=== PATIENT | male | born 1940 | race Asian ===

== ENCOUNTER 2021-12-04 13:42 | Inpatient (IN) | payer OTHER, MEDICAID, SELFPAY ==
[~2021-12-04] VITALS: Ht 165.1 cm; Wt 65.8 kg
[2021-12-04 13:42] VITALS: BP 125/60
--- NOTE | 2021-12-04 14:20 | NUR ---
TORIE GERARDO AT BEDSIDE TO ASSESS PT
--- NOTE | 2021-12-04 14:26 | NUR ---
BLOOD SPECIMEN AND COVID SWAB COLLECTED AND GIVEN TO TECH IN UNIT.
--- NOTE | 2021-12-04 14:29 | NUR ---
JAMES AT BEDSIDE TO PERFORM EKG
[2021-12-04 15:07] LABS: BASOPHILS # (AUTO) 0.1 K/uL (0.00-0.22); BASOPHILS % (AUTO) 0.6 % (0.0-2.0); EOSINOPHILS # (AUTO) 0.1 K/uL (0-0.4); EOSINOPHILS % (AUTO) 0.6 % (0.0-4.0); HEMATOCRIT 22.5 % (36-52); HEMOGLOBIN 7.5 g/dL (12.0-18.0); LYMPHOCYTES # (AUTO) 0.8 K/uL (2.0-11.5); LYMPHOCYTES % (AUTO) 5.6 % (20.5-51.1); MEAN CORPUSCULAR HEMOGLOBIN 31 pg (27-31); MEAN CORPUSCULAR HGB CONC 33 g/dL (33-37); MEAN CORPUSCULAR VOLUME 93.9 fL (80-94); MONOCYTES # (AUTO) 0.9 K/uL (0.8-1.0); MONOCYTES % (AUTO) 6.4 % (1.7-9.3); NEUTROPHILS # (AUTO) 11.9 K/uL (1.8-7.7); NEUTROPHILS % (AUTO) 86.8 % (42.2-75.2); PLATELET COUNT (AUTO) 501 K/uL (140-450); RED CELL DISTRIBUTION WIDTH 16.3 % (11.6-13.7); WHITE BLOOD COUNT (AUTO) 13.8 K/uL (4.8-10.8)
[2021-12-04 15:24] LABS: ALBUMIN 1.5 g/dL (3.4-5.0); ANION GAP 11.8 (8-16); ASPARTATE AMINOTRANSFERASE 58 U/L (15-37); CARBON DIOXIDE 25.6 mmol/L (21-32); CHLORIDE 98 mmol/L (98-107); CREATININE 0.7 mg/dL (0.6-1.3); GLUCOSE 99 mg/dL (74-106); POTASSIUM 4.4 mmol/L (3.5-5.1); SODIUM SERUM 131 mmol/L (136-145); TOTAL BILIRUBIN 0.5 mg/dL (0.0-1.0); UREA NITROGEN, BLOOD 10 mg/dL (7-18)
[2021-12-04] MEDS ORDERED: cefTRIAXone 1,000 MG VIAL ONE (17:22)
--- NOTE | 2021-12-04 19:16 | NUR ---
Pt report given to DYLAN MCKENZIE. Transfer of care at this time.
--- NOTE | 2021-12-04 20:50 | NUR ---
REPORT GIVEN TO JODI GONZALEZ RN FOR CONTINUITY OF CARE.
[2021-12-04 21:00] VITALS: BP 138/65
--- NOTE | 2021-12-04 21:00 | NUR ---
ADMITTED THE PATIENT FROM ER VIA [facility]. PATIENT AWAKE, ALERT, ORIENTED TO PERSON AND PLACE. PATIENT IS A ITALIAN SPEAKING GENTLEMAN BUT ABLE TO SPEAK SYRIAC AND MAKE HIS NEEDS KNOWN. PT ADMITTED FOR BLADDER CA AND RIGHT NEPHROSTOMY TUBE REPLACEMENT. PATIENT HAS BILATERAL NEPHROSTOMY TUBE IN PLACED. PER ER REPORT THE PT RIGHT NEPHROSTOMY IS CLOGGED. NO OUTPUT NOTED ON THE RT SIDE DRAIN AND NOTED A CLEAR URINE ON THE LEFT DRAIN JUST 15 CC. PATIENT IS ALSO INCONTINENT WITH URINE. RECEIVED PATIENT FROM ER SOAKING WITH URINE, CHANGED THE PATIENT AND PARTIAL BED BATH PROVIDED WITH THE HELPED OF THE COMMUNITY AMBASSADOR MARITA. OTHERWISE THE PATIENT IS NOT ON ANY DISTRESS AND DENIES PAIN AT THIS TIME. PATIENT JUST VERBALIZED THAT HE WANTED HIS LIGHT OFF AND CURTAIN CLOSE. ORIENTED THE PT TO THE USE OF CALL LIGHT SYSTEM AND VERBALIZED UNDERSTANDING. CALL LIGHT WITHIN REACH. WILL CONTINUE POC. VSS, AFEBRILE, SATING 96% ON RA.
--- NOTE | 2021-12-04 22:00 | NUR ---
NO DUE MEDS AT THIS TIME. PATIENT HAS EXCORIATION ON GABRIELA AREA AND BUTTOCKS. WILL ORDER HYDRA GUARD OINTMENT.
--- NOTE | 2021-12-05 | NUR ---
PATIENT ASLEEP AT THIS TIME. VISIBLE CHEST RISE AND FALL NOTED. WILL CONTINUE TO OBSERVE.
[2021-12-05] MEDS ORDERED: HYDRAGUARD CREAM TP SCH (01:05)
[2021-12-05] MEDS ORDERED: HYDRAGUARD CREAM TP ONE (02:13)
--- NOTE | 2021-12-05 02:46 | NUR ---
PATIENT ASLEEP AT THIS TIME. VISIBLE CHEST RISE AND FALL NOTED. WILL CONTINUE TO OBSERVE.
[2021-12-05 04:00] VITALS: BP 129/65
--- NOTE | 2021-12-05 04:00 | NUR ---
PT VITAL SIGN STABLE, AFEBRILE, SATING 97% ON RA. NO COMPLAIN OF PAIN AT THIS TIME. WILL CONTINUE TO OBSERVE.
--- NOTE | 2021-12-05 07:03 | NUR ---
PATIENT STABLE AND NOT ON ANY DISTRESS. ALL NEEDS ATTENDED. WILL ENDORSE THE PATIENT TO THE ONCOMING RN FOR CONTINUITY OF CARE.
--- NOTE | 2021-12-05 07:34 | NUR ---
ENDORSED PT TO DAY RN FOR CONTINUITY OF CARE. PT STABLE. SIGNING OFF.
[2021-12-05 07:47] LABS: BASOPHILS # (AUTO) 0.1 K/uL (0.00-0.22); BASOPHILS % (AUTO) 0.5 % (0.0-2.0); EOSINOPHILS # (AUTO) 0.2 K/uL (0-0.4); EOSINOPHILS % (AUTO) 0.7 % (0.0-4.0); HEMATOCRIT 22.8 % (36-52); HEMOGLOBIN 7.6 g/dL (12.0-18.0); LYMPHOCYTES # (AUTO) 2.1 K/uL (2.0-11.5); LYMPHOCYTES % (AUTO) 9.1 % (20.5-51.1); MEAN CORPUSCULAR HEMOGLOBIN 31 pg (27-31); MEAN CORPUSCULAR HGB CONC 33 g/dL (33-37); MONOCYTES # (AUTO) 1.8 K/uL (0.8-1.0); MONOCYTES % (AUTO) 8.2 % (1.7-9.3); NEUTROPHILS # (AUTO) 18.3 K/uL (1.8-7.7); NEUTROPHILS % (AUTO) 81.5 % (42.2-75.2); PLATELET COUNT (AUTO) 452 K/uL (140-450); RED BLOOD CELL COUNT(AUTO) 2.43 MIL/uL (4.20-6.10); RED CELL DISTRIBUTION WIDTH 16.3 % (11.6-13.7)
[2021-12-05 08:01] LABS: ALBUMIN 1.5 g/dL (3.4-5.0); ANION GAP 11.5 (8-16); ASPARTATE AMINOTRANSFERASE 21 U/L (15-37); CARBON DIOXIDE 26.3 mmol/L (21-32); CHLORIDE 100 mmol/L (98-107); CREATININE 0.7 mg/dL (0.6-1.3); GLUCOSE 83 mg/dL (74-106); SODIUM SERUM 135 mmol/L (136-145); TOTAL BILIRUBIN 0.2 mg/dL (0.0-1.0); UREA NITROGEN, BLOOD 9 mg/dL (7-18)
[2021-12-05 08:05] LABS: POTASSIUM 2.8 mmol/L (3.5-5.1)
[2021-12-05 08:45] LABS: WHITE BLOOD COUNT (AUTO) 22.4 K/uL (4.8-10.8)
[2021-12-05] MEDS ORDERED: POTASSIUM CHLORIDE 40 MEQ in NACL 0.9% 1,000 ML IV SCH (08:45)
[2021-12-05] MEDS ORDERED: KCL 20 MEQ/WATER INJ PREMIX 200 ML IV ONE (08:50)
--- NOTE | 2021-12-05 08:50 | NUR ---
REPORTED CRITICAL LAB VALUES TO DR. CANTU, MEDICATION ORDERS RECEIVED
--- NOTE | 2021-12-05 08:51 | NUR ---
PATIENT HAS BEEN SCREENED AND CATEGORIZED HIGH NUTRITION RISK. PATIENT WILL BE SEEN WITHIN 1-2 DAYS OF ADMISSION. 12/05/21-12/06/21 RECEIVED REFERRAL FOR DYSPHAGIA ANGELA [address]
[2021-12-05] MEDS ORDERED: POTASSIUM CHLORIDE 10 MEQ TABER PO SCH ×2 (09:00→15:30)
[2021-12-05] MEDS: KCL 20 MEQ/WATER INJ PREMIX 100 ML IV SCH ×2 (09:53→14:30)
[2021-12-05] MEDS ORDERED: ZOLPIDEM 5 MG TAB PO PRN (10:45)
[2021-12-05] MEDS ORDERED: MORPHINE SULFATE 2 MG/ML SYR IVP PRN (10:45)
[2021-12-05] MEDS ORDERED: DOCUSATE SODIUM 100 MG GELCAP PO PRN (10:45)
[2021-12-05] MEDS ORDERED: ONDANSETRON 4 MG/2 ML VIAL IM/IVP PRN (10:45)
[2021-12-05] MEDS ORDERED: MAG SULF 2000 MG/WATER PREMIX 50 ML IV PRN (10:45)
[2021-12-05] MEDS ORDERED: LORazepam 2 MG/ML VIAL IM/IVP PRN (10:45)
[2021-12-05] MEDS: DEXT 5% /NACL 0.9% 1,000 ML IV SCH ×2 (11:44→20:45)
[2021-12-05 12:00] VITALS: BP 116/57
--- NOTE | 2021-12-05 13:55 | NUR ---
DC PLANN[age] YRS OLD MALE PATIENT WAS ADMITTED FROM [facility] WITH A DX OF BLADDER CA, NEPHROSTOMY TUBE PLACEMENT. PATIENT HAS A HX OF BLADDER CA. CT CHEST SHOWED RIGHT SIDED PULMONARY INFILTRATES WITH TRACE BILATERAL PLEURAL EFFUSIONS. RAPID COVID NEGATIVE. ADMINISTERED IV FLUID, IV ABX MERREM AND CONTINUED HOME MEDS. CONSULTED WITH UROLOGIST AND ID. DC PLAN TO GO BACK TO [facility] WHEN STABLE CM TO FOLLOW Addendum: 12/10/21 at 1704 by Colleen Whipple RN DC PLANNING: S/P BILATERAL NEPHROSTOMY TUBE EXCHANGE PLAN TO EXCHANGE Q 8-12 WEEKS TO PREVENT CLOGGING AND INFECTION. ID FOLLOWING DC PLAN AWAITING FOR URINE CULTURE. CM TO FOLLOW Addendum: 12/11/21 at 1230 by Colleen Whipple RN DC PLANNING: TODAY'S LAB WBC 18.4 ON MERREM IV ABX. ID AND UROLOGIST FOLLOWING. DC PLAN AWAITING FOR URINE CULTURE. CM TO FOLLOW Addendum: 12/18/21 at 1023 by Colleen Whipple RN DC PLANNING: PATIENT HAS A DC ORDER TO GO BACK TO [facility]. FAXED ALL PAPERWORK. AWAITING FOR BED. CM TO FOLLOW Addendum: 12/18/21 at 1510 by Colleen Whipple RN DC PLANNING: ARRANGED TRANSPORT WITH [facility] CYLINDER DIE MACHINE OPERATOR TIME 5 PM MEDICARE PCS FORM COMPLETED AND FAXED TO [facility] [phone]. NOTIFIED IGNACIA RICHARDSON. CM TO FOLLOW
--- NOTE | 2021-12-05 14:30 | NUR ---
PT INCONTINENT - GIVEN BED BATH, REPOSITIONED, PT STABLE IN BED, VSS, CALL LIGHT WITHIN REACH, SAFETY MEASURES MAINTAINED
--- NOTE | 2021-12-05 14:32 | NUR ---
PT REFUSED POTASSIUM - MD CANTU MADE AWARE
--- NOTE | 2021-12-05 16:30 | NUR ---
BLADDER SCAN COMPLETED - 475ML DR. CANTU NOTIFIED - ORDER TO PUT LOVE CATHETER PLACED
--- NOTE | 2021-12-05 17:00 | NUR ---
16FR LOVE CATHETER PLACED, PT TOLERATED WELL, NO ACUTE DISTRESS, VSS, SAFETY MEASURES MAINTAINED, CALL LIGHT WITHIN REACH, WILL CONTINUE TO MONITOR
[2021-12-05 17:44] LABS: CARBON DIOXIDE 26.9 mmol/L (21-32); CHLORIDE 100 mmol/L (98-107); CREATININE 0.8 mg/dL (0.6-1.3); GLUCOSE 112 mg/dL (74-106); POTASSIUM 3.9 mmol/L (3.5-5.1); SODIUM SERUM 134 mmol/L (136-145); UREA NITROGEN, BLOOD 11 mg/dL (7-18)
[2021-12-05 18:00] LABS: PROTHROMBIN TIME 11.2 secs (10.8-13.4)
[2021-12-05 18:16] LABS: CHOL/HDL RATIO 4.6 (1-4.5); THYROID STIMULATING HORMONE 1.71 uIU/mL (0.34-3.74)
--- NOTE | 2021-12-05 18:54 | NUR ---
PT STABLE IN BED, NPO CONTINUED - PENDING IR CONSULT FOR TOMORROW (rIGHT NEPHROSTOMY CLOGGED), LOVE AND IV INTACT, NO ACUTE DISTRESS, SAFETY MEASURES MAINTAINED, CALL LIGHT WITHIN REACH, WILL ENDORSE TO PM SHIFT
--- NOTE | 2021-12-05 19:05 | NUR ---
RECEIVED BEDSIDE REPORT FROM MORNING SHIFT NURSE FOR CONTINUITY OF CARE. PATIENT IS AWAKE AND STABLE. A&OX2 WITH CONFUSION. AROUSABLE TO NAME AND ABLE TO FOLLOW COMMANDS. ON ROOM AIR WITH NO APPARENT S/SX OF ACUTE DISTRESS. RESPIRATIONS EVEN AND UNLABORED. PATIENT HAS AN IV ON LEFT WRIST 22G PATENT/INTACT WITH D5NS INFUSING AT 100 ML/HOUR. F/C IS PRESENT WITH A VISIBLE OUTPUT. RIGHT NEPROSTOMY BAG IS INTACT. POC AND WHITE COMMUNICATION BOARD UPDATED. ALL SAFETY MEASURES IN PLACE. BED IN LOW/LOCKED POSITION. CALL LIGHT WITHIN REACH. WILL CONTINUE TO MONITOR.
[2021-12-05 20:00] VITALS: BP 133/70
--- NOTE | 2021-12-05 20:00 | NUR ---
Patient's Plan of Care was discussed and reviewed with DAMPENER:
--- NOTE | 2021-12-05 21:20 | NUR ---
ADMINISTERED SCHEDULED MEDICATIONS PER MD ORDER. TOLERATED WELL. NO ADVERSE REACTION NOTED. DENIES PAIN. RESPIRATIONS EVEN AND UNLABORED WITH NO APPARENT S/SX OF ACUTE DISTRESS. SNACKS PROVIDED. WHITE COMMUNICATION BOARD UPDATED. ALL SAFETY MEASURES IN PLACE. CALL LIGHT WITHIN REACH. WILL CONTINUE TO MONITOR.
[2021-12-05] MEDS ORDERED: MEROPENEM 1,000 MG in NACL 0.9% 50 ML IV SCH (22:00)
--- NOTE | 2021-12-05 23:20 | NUR ---
ANSWERED CALL LIGHT. REPLACED IVF BAG. DENIES PAIN. RESPIRATIONS EVEN AND UNLABORED WITH NO APPARENT S/SX OF ACUTE DISTRESS. WHITE COMMUNICATION BOARD UPDATED. ALL SAFETY MEASURES IN PLACE. CALL LIGHT WITHIN REACH. WILL CONTINUE TO MONITOR.
--- NOTE | 2021-12-06 01:20 | NUR ---
CHECKED PATIENT. STABLE AND ASLEEP. CHEST IS RISING AND FALLING SYMMETRICALLY. RESPIRATIONS EVEN AND UNLABORED WITH NO APPARENT S/SX OF ACUTE DISTRESS. WHITE COMMUNICATION BOARD UPDATED. ALL SAFETY MEASURES IN PLACE. CALL LIGHT WITHIN REACH. WILL CONTINUE TO MONITOR.
--- NOTE | 2021-12-06 03:20 | NUR ---
ROUNDED ON PATIENT. STABLE AND ASLEEP. CHEST IS RISING AND FALLING SYMMETRICALLY. RESPIRATIONS EVEN AND UNLABORED WITH NO APPARENT S/SX OF ACUTE DISTRESS. WHITE COMMUNICATION BOARD UPDATED. ALL SAFETY MEASURES IN PLACE. CALL LIGHT WITHIN REACH. WILL CONTINUE TO MONITOR.
[2021-12-06 04:00] VITALS: BP 128/76
[2021-12-06] MEDS ORDERED: MEROPENEM 1,000 MG VIAL IV ONE (04:43)
[2021-12-06] MEDS: MEROPENEM 1,000 MG in NACL 0.9% 50 ML IV SCH ×3 (04:48→21:08)
--- NOTE | 2021-12-06 05:20 | NUR ---
EMPTIED PATIENT'S NEPHROSTOMY BAG. HYDRATED PATIENT'S LIPS VIA SWAB AND APPLIED MOISTURIZER. DENIES PAIN. RESPIRATIONS EVEN AND UNLABORED WITH NO APPARENT S/SX OF ACUTE DISTRESS. WHITE COMMUNICATION BOARD UPDATED. ALL SAFETY MEASURES IN PLACE. CALL LIGHT WITHIN REACH. WILL CONTINUE TO MONITOR.
[2021-12-06 06:03] LABS: BASOPHILS # (AUTO) 0.1 K/uL (0.00-0.22); BASOPHILS % (AUTO) 0.3 % (0.0-2.0); EOSINOPHILS # (AUTO) 0.1 K/uL (0-0.4); EOSINOPHILS % (AUTO) 0.3 % (0.0-4.0); HEMOGLOBIN 8.3 g/dL (12.0-18.0); LYMPHOCYTES % (AUTO) 9.5 % (20.5-51.1); MEAN CORPUSCULAR HEMOGLOBIN 32 pg (27-31); MEAN CORPUSCULAR HGB CONC 33 g/dL (33-37); MEAN CORPUSCULAR VOLUME 94.8 fL (80-94); MONOCYTES # (AUTO) 1.9 K/uL (0.8-1.0); MONOCYTES % (AUTO) 8.9 % (1.7-9.3); NEUTROPHILS # (AUTO) 16.9 K/uL (1.8-7.7); PLATELET COUNT (AUTO) 461 K/uL (140-450); RED BLOOD CELL COUNT(AUTO) 2.63 MIL/uL (4.20-6.10); RED CELL DISTRIBUTION WIDTH 17.2 % (11.6-13.7)
[2021-12-06 06:27] LABS: ANION GAP 10.9 (8-16); CARBON DIOXIDE 25.3 mmol/L (21-32); CHLORIDE 104 mmol/L (98-107); CREATININE 0.9 mg/dL (0.6-1.3); GLUCOSE 143 mg/dL (74-106); POTASSIUM 4.2 mmol/L (3.5-5.1); SODIUM SERUM 136 mmol/L (136-145); UREA NITROGEN, BLOOD 10 mg/dL (7-18)
[2021-12-06 06:36] LABS: MAGNESIUM 2.1 mg/dL (1.8-2.4); PHOSPHORUS 1.6 mg/dL (2.5-4.9)
[2021-12-06] MEDS: DEXT 5% /NACL 0.9% 1,000 ML IV SCH ×3 (06:45→23:50)
[2021-12-06 06:49] LABS: WHITE BLOOD COUNT (AUTO) 20.8 K/uL (4.8-10.8)
--- NOTE | 2021-12-06 07:20 | NUR ---
ENDORSED PATIENT TO MORNING SHIFT NURSE FOR CONTINUITY OF CARE. PATIENT IS STABLE.
[2021-12-06 08:00] VITALS: BP 128/67
[2021-12-06] MEDS: HYDROcodone/APAP 5/325 MG 1 TAB TAB PO PRN (09:27)
[2021-12-06] MEDS ORDERED: FLUMAZENIL 0.5 MG/5 ML VIAL IVP ONE (11:12)
[2021-12-06] MEDS ORDERED: NALOXONE 0.4 MG/ML VIAL ONE (11:12)
[2021-12-06] MEDS ORDERED: fentaNYL citrate 0.05 MG/ML VIAL ONE ×2 (11:12→11:25)
[2021-12-06] MEDS ORDERED: MIDAZOLAM 5 MG/5 ML VIAL ONE (11:13)
[2021-12-06] MEDS ORDERED: ceFAZolin 1,000 MG VIAL ONE ×2 (11:22→11:25)
[2021-12-06] MEDS ORDERED: MIDAZOLAM 5 MG/1 ML VIAL ONE (11:25)
[2021-12-06] MEDS ORDERED: LIDOCAINE MPF 2% 100 MG/5 ML VIAL INJ ONE ×2 (11:51→11:53)
[2021-12-06] MEDS: FLUCONAZOLE 100 MG TAB PO SCH (14:00)
--- NOTE | 2021-12-06 14:16 | NUR ---
12/06/21 RD INITIAL ASSESSMENT COMPLETED PLEASE REFER TO NUTRITION ASSESSMENT UNDER CARE ACTIVITY FOR ESTIMATED NUTRITIONAL NEEDS. 1. WHEN/IF MEDICALLY APPROPRIATE, ADVANCE DIET TO CLEAR LIQUID TOLERATED OR PER MD 2. RECOMMEND SWALLOW EVAL D/T PT WITH SWALLOWING IMPAIRED 3. RD TO FOLLOW-UP 2-3 DAYS, HIGH RISK ANGELA ZHENG RD
[2021-12-06 16:00] VITALS: BP 139/66
[2021-12-06] MEDS ORDERED: SODIUM PHOSPHATE 15 MMOLE in NACL 0.9% 250 ML IV SCH (22:10)
--- NOTE | 2021-12-06 23:00 | NUR ---
RECEIVED BEDSIDE REPORT FROM JENNIFER RICHARDSON. PT IS AAOX2-3 PT AWAKE LAYING IN BED COMFORTABLY DENIES ANY COMPLAINTS. PT IS S/P JOSEPH NEPHROSTOMY PLACEMENT DRAINING WELL R YELLOW URINE NOTED R PINK TINGED URINE NOTED. LOVE CATH DRAINING YELLOW URINE. LW22G SL AND WR22G IVF INFUSING PER ORDERS. RESPIRATIONS ARE EQUAL AND UNLABORED ON ROOM AIR. SKIN IS WARM, DRY AND INTACT. PT NPO WAITING ST EVAL. PT IS BEDREST. POC REVIEWED WITH PT. CALL LIGHT IS WITHIN REACH. WILL CONTINUE TO MONITOR.
[2021-12-07] MEDS ORDERED: SODIUM PHOS / POTASSIUM PHOS 1 PKT PDR PO ONE
[2021-12-07] MEDS: SODIUM PHOS / POTASSIUM PHOS 1 PKT PDR PO SCH ×3 (00:48→17:48)
--- NOTE | 2021-12-07 02:00 | NUR ---
ROUNDS MADE. PT OBSERVED RESTING IN BED WITH EYES CLOSED APPEARS TO BE ASLEEP. CHEST RISE AND FALL NOTED. CALL LIGHT IS WITHIN REACH. WILL CONTINUE TO MONITOR.
[2021-12-07 04:00] VITALS: BP 122/62
--- NOTE | 2021-12-07 04:00 | NUR ---
VITAL SIGNS ARE WITHIN NORMAL LIMITS. ALL SAFETY MEASURES ARE IN PLACE. WILL CONTINUE TO MONITOR
[2021-12-07] MEDS: MEROPENEM 1,000 MG in NACL 0.9% 50 ML IV SCH ×3 (04:06→20:36)
--- NOTE | 2021-12-07 07:23 | NUR ---
GAVE BEDSIDE REPORT TO DAY RN. PT ENDORSED IN STABLE CONDITION.
[2021-12-07 07:46] LABS: BASOPHILS # (AUTO) 0.2 K/uL (0.00-0.22); BASOPHILS % (AUTO) 0.9 % (0.0-2.0); EOSINOPHILS # (AUTO) 0.2 K/uL (0-0.4); EOSINOPHILS % (AUTO) 0.8 % (0.0-4.0); HEMATOCRIT 21.1 % (36-52); LYMPHOCYTES # (AUTO) 2.7 K/uL (2.0-11.5); MEAN CORPUSCULAR HEMOGLOBIN 31 pg (27-31); MEAN CORPUSCULAR HGB CONC 33 g/dL (33-37); MONOCYTES % (AUTO) 9.9 % (1.7-9.3); NEUTROPHILS # (AUTO) 15.4 K/uL (1.8-7.7); NEUTROPHILS % (AUTO) 75.4 % (42.2-75.2); PLATELET COUNT (AUTO) 377 K/uL (140-450); RED BLOOD CELL COUNT(AUTO) 2.24 MIL/uL (4.20-6.10); RED CELL DISTRIBUTION WIDTH 16.9 % (11.6-13.7); WHITE BLOOD COUNT (AUTO) 20.5 K/uL (4.8-10.8)
[2021-12-07 07:54] LABS: ANION GAP 11.1 (8-16); CARBON DIOXIDE 24.7 mmol/L (21-32); CHLORIDE 105 mmol/L (98-107); CREATININE 0.8 mg/dL (0.6-1.3); GLUCOSE 124 mg/dL (74-106); SODIUM SERUM 138 mmol/L (136-145); UREA NITROGEN, BLOOD 7 mg/dL (7-18)
[2021-12-07 07:56] LABS: POTASSIUM 2.8 mmol/L (3.5-5.1)
[2021-12-07 08:00] VITALS: BP 116/54
[2021-12-07 08:07] LABS: MAGNESIUM 1.8 mg/dL (1.8-2.4); PHOSPHORUS 1.9 mg/dL (2.5-4.9)
[2021-12-07] MEDS: DEXT 5% /NACL 0.9% 1,000 ML IV SCH ×2 (08:42→22:18)
[2021-12-07] MEDS: POTASSIUM CHLORIDE 10 MEQ TABER PO PRN (08:43)
[2021-12-07] MEDS ORDERED: POTASSIUM CHLORIDE 40 MEQ, LIDOCAINE MPF 1% 25 MG in NACL 0.9% 250 ML IV ONE (08:50)
[2021-12-07] MEDS ORDERED: POTASSIUM PHOSPHATE 15 MM in NACL 0.9% 250 ML IV SCH (13:00)
[2021-12-07] MEDS: FLUCONAZOLE 100 MG TAB PO SCH (14:17)
[2021-12-07 16:00] VITALS: BP 124/59
[2021-12-07 20:29] VITALS: BP 114/65
[2021-12-08 04:00] VITALS: BP 118/64
[2021-12-08] MEDS: MEROPENEM 1,000 MG in NACL 0.9% 50 ML IV SCH ×3 (04:08→20:34)
[2021-12-08 08:00] VITALS: BP 123/62
[2021-12-08] MEDS ORDERED: MENTHOL/ZINC OXIDE 113 GM TUBE TP PRN (08:00)
[2021-12-08] MEDS: DEXT 5% /NACL 0.9% 1,000 ML IV SCH ×2 (08:45→17:51)
[2021-12-08 10:03] LABS: ANION GAP 6.8 (8-16); CARBON DIOXIDE 28.5 mmol/L (21-32); CHLORIDE 108 mmol/L (98-107); CREATININE 0.8 mg/dL (0.6-1.3); GLUCOSE 114 mg/dL (74-106); POTASSIUM 4.3 mmol/L (3.5-5.1); SODIUM SERUM 139 mmol/L (136-145); UREA NITROGEN, BLOOD 8 mg/dL (7-18)
[2021-12-08 10:07] LABS: MAGNESIUM 1.9 mg/dL (1.8-2.4)
[2021-12-08 10:08] LABS: BASOPHILS # (AUTO) 0.1 K/uL (0.00-0.22); BASOPHILS % (AUTO) 0.6 % (0.0-2.0); EOSINOPHILS # (AUTO) 0.3 K/uL (0-0.4); EOSINOPHILS % (AUTO) 1.6 % (0.0-4.0); HEMATOCRIT 22.8 % (36-52); HEMOGLOBIN 7.5 g/dL (12.0-18.0); LYMPHOCYTES # (AUTO) 2.4 K/uL (2.0-11.5); LYMPHOCYTES % (AUTO) 11.7 % (20.5-51.1); MEAN CORPUSCULAR HEMOGLOBIN 32 pg (27-31); MEAN CORPUSCULAR HGB CONC 33 g/dL (33-37); MEAN CORPUSCULAR VOLUME 95.3 fL (80-94); MONOCYTES # (AUTO) 1.6 K/uL (0.8-1.0); MONOCYTES % (AUTO) 7.6 % (1.7-9.3); NEUTROPHILS # (AUTO) 16.3 K/uL (1.8-7.7); NEUTROPHILS % (AUTO) 78.5 % (42.2-75.2); PLATELET COUNT (AUTO) 397 K/uL (140-450); RED CELL DISTRIBUTION WIDTH 17.5 % (11.6-13.7); WHITE BLOOD COUNT (AUTO) 20.8 K/uL (4.8-10.8)
[2021-12-08] MEDS: FLUCONAZOLE 100 MG TAB PO SCH (14:00)
--- NOTE | 2021-12-08 15:23 | NUR ---
PHYSICAL THERAPY CO-SIGN The Physical Therapy Progress Notes documented by Crutching Contractor have been reviewed. Reviewed/Co-Signed by: Mabel Yancey Documentation Done by: AILYN BAZZI PTA Addendum: 12/09/21 at 1524 by Mabel Yancey PT Amended: Links added.
[2021-12-08 16:00] VITALS: BP 114/60
[2021-12-08 20:00] VITALS: BP 113/62
[2021-12-09] MEDS: DEXT 5% /NACL 0.9% 1,000 ML IV SCH ×2 (00:50→15:18)
[2021-12-09 04:00] VITALS: BP 129/61
[2021-12-09] MEDS: MEROPENEM 1,000 MG in NACL 0.9% 50 ML IV SCH ×3 (04:52→22:44)
--- NOTE | 2021-12-09 07:29 | NUR ---
RECEIVED REPORT FROM AFRICAN STUDIES PROFESSOR NURSE FOR CONTINUITY OF CARE.
--- NOTE | 2021-12-09 08:00 | NUR ---
Patient's Plan of Care was discussed and reviewed with PRANAV: PRANAV KEYES
[2021-12-09 08:32] LABS: BASOPHILS # (AUTO) 0.1 K/uL (0.00-0.22); BASOPHILS % (AUTO) 0.5 % (0.0-2.0); EOSINOPHILS # (AUTO) 0.2 K/uL (0-0.4); EOSINOPHILS % (AUTO) 1.1 % (0.0-4.0); HEMATOCRIT 22.4 % (36-52); HEMOGLOBIN 7.3 g/dL (12.0-18.0); LYMPHOCYTES # (AUTO) 2.4 K/uL (2.0-11.5); LYMPHOCYTES % (AUTO) 12.8 % (20.5-51.1); MEAN CORPUSCULAR HEMOGLOBIN 31 pg (27-31); MEAN CORPUSCULAR HGB CONC 33 g/dL (33-37); MEAN CORPUSCULAR VOLUME 95.7 fL (80-94); MONOCYTES # (AUTO) 1.3 K/uL (0.8-1.0); MONOCYTES % (AUTO) 6.9 % (1.7-9.3); NEUTROPHILS # (AUTO) 14.8 K/uL (1.8-7.7); NEUTROPHILS % (AUTO) 78.7 % (42.2-75.2); PLATELET COUNT (AUTO) 377 K/uL (140-450); RED BLOOD CELL COUNT(AUTO) 2.34 MIL/uL (4.20-6.10); RED CELL DISTRIBUTION WIDTH 17.3 % (11.6-13.7); WHITE BLOOD COUNT (AUTO) 18.8 K/uL (4.8-10.8)
[2021-12-09 08:57] LABS: ANION GAP 10.2 (8-16); CARBON DIOXIDE 24.1 mmol/L (21-32); CHLORIDE 106 mmol/L (98-107); CREATININE 0.8 mg/dL (0.6-1.3); GLUCOSE 123 mg/dL (74-106); POTASSIUM 3.3 mmol/L (3.5-5.1); SODIUM SERUM 137 mmol/L (136-145); UREA NITROGEN, BLOOD 7 mg/dL (7-18)
[2021-12-09 09:05] LABS: MAGNESIUM 1.9 mg/dL (1.8-2.4)
--- NOTE | 2021-12-09 09:42 | NUR ---
REMOVED LOVE CATHETER ODER NO HEMATURIA NOTED. BOTH` RIGHT AND LEFT NEPHROSTOMY WORKING WELL.
--- NOTE | 2021-12-09 11:40 | NUR ---
PT ON BED ALERT RESTING ALL SAFETY MEASURE IN PLACE. NEPHROSTOMY TUBE DRAINING WELL NO BLEEDING NOTED. NO COMPLAIN OF HEMATURIA OR DYSURIA AFTER LOVE CATHETER REMOVAL. CALL LIGHT WITH IN EASY REACH.
[2021-12-09 12:00] VITALS: BP 121/59
--- NOTE | 2021-12-09 13:01 | NUR ---
12/09/21 RD FOLLOW UP COMPLETED. PLEASE REFER TO NUTRITION ASSESSMENT UNDER CARE ACTIVITY FOR ESTIMATED NUTRITIONAL NEEDS. 1. CONTINUE WITH MECHANICAL SOFT DIET. WHEN/IF MEDICALLY APPROPRIATE, ADVANCE DIET TO REGULAR TOLERATED OR PER MD 2. RECOMMEND SWALLOW EVAL D/T PT WITH SWALLOWING IMPAIRED RD TO FOLLOW-UP IN 3-5 DAYS PATIENT IS MODERATE RISK HIREN GRISSOM RD
[2021-12-09] MEDS: FLUCONAZOLE 100 MG TAB PO SCH (13:23)
--- NOTE | 2021-12-09 13:30 | NUR ---
PATIENT ASSISTED TO SET HIS LUNCH AND SIT UP SO HE CAN PROPERLY SIT AND EAT. PT ABLE TO EAT ON HIS OWN GIVEN ORAL MEDICATION. CALL LIGHT WITH IN EASY REACH.
--- NOTE | 2021-12-09 15:23 | NUR ---
PHYSICAL THERAPY CO-SIGN The Physical Therapy Progress Notes documented by Wildlife Conservation Officer have been reviewed. Reviewed/Co-Signed by: Mabel Yancey Documentation Done by: AILYN BAZZI PTA Addendum: 12/09/21 at 1524 by Mabel Yancey PT Amended: Links added.
--- NOTE | 2021-12-09 15:38 | NUR ---
ENDLESS BELT FINISHER AT BED SIDE AND CHECKING HIS VITAL SIGN.
--- NOTE | 2021-12-09 17:36 | NUR ---
PATIENT ON BED ALERT NO DISTRESS NOTED. NO FEVER OR CHILLS NO S/S OF INFECTION. ENCOURAGED TO INCREASE FLUID AND ORAL INTAKE.
--- NOTE | 2021-12-09 18:57 | NUR ---
ON BED ASLEEP NO DISTRESS NOTED. NO ADVERSE REACTION NOTED ON ANTIBIOTIC THERAPY. DENIES PAIN OR ANY DISCOMFORT.CALL LIGHT WITH IN EASY REACH.
--- NOTE | 2021-12-09 19:26 | NUR ---
ENDORSE TO LEG ASSEMBLER NURSE FOR CONTINUITY OF CARE.
[2021-12-09 20:00] VITALS: BP 121/60
[2021-12-10] MEDS: DEXT 5% /NACL 0.9% 1,000 ML IV SCH ×3 (00:45→21:41)
[2021-12-10 04:00] VITALS: BP 127/63
[2021-12-10] MEDS: MEROPENEM 1,000 MG in NACL 0.9% 50 ML IV SCH ×3 (05:00→21:42)
--- NOTE | 2021-12-10 05:12 | NUR ---
PT VERBALIZED THAT HE IS EAGER TO GET UP AND OOB (OUT OF BED) AND BEGIN WALKING WITH PHYSICAL THERAPY. WILL ENDORSE TO DAY SHIFT.
--- NOTE | 2021-12-10 07:12 | NUR ---
RECEIVED REPORT FROM TALENT BUYER NURSE FOR CONTINUITY OF CARE. PT IN BED SLEEPING AT THIS TIME. RESPIRATIONS ARE EVEN AND UNLABORED. NO SIGNS OF DISTRESS NOTED. CALL LIGHT WITHIN REACH. ALL SAFETY MEASURES IN PLACE. WILL CONTINUE TO MONITOR.
[2021-12-10 07:40] LABS: BASOPHILS # (AUTO) 0.1 K/uL (0.00-0.22); BASOPHILS % (AUTO) 0.7 % (0.0-2.0); EOSINOPHILS # (AUTO) 0.2 K/uL (0-0.4); HEMOGLOBIN 7.8 g/dL (12.0-18.0); LYMPHOCYTES % (AUTO) 16.1 % (20.5-51.1); MEAN CORPUSCULAR HEMOGLOBIN 31 pg (27-31); MEAN CORPUSCULAR HGB CONC 33 g/dL (33-37); MEAN CORPUSCULAR VOLUME 95.5 fL (80-94); MONOCYTES # (AUTO) 1.2 K/uL (0.8-1.0); MONOCYTES % (AUTO) 6.6 % (1.7-9.3); NEUTROPHILS # (AUTO) 13.9 K/uL (1.8-7.7); NEUTROPHILS % (AUTO) 75.6 % (42.2-75.2); PLATELET COUNT (AUTO) 345 K/uL (140-450); RED BLOOD CELL COUNT(AUTO) 2.51 MIL/uL (4.20-6.10); RED CELL DISTRIBUTION WIDTH 17.3 % (11.6-13.7); WHITE BLOOD COUNT (AUTO) 18.4 K/uL (4.8-10.8)
--- NOTE | 2021-12-10 07:59 | NUR ---
THIS INTERVENTION NOT DONE BY INVENTORY CONTROL ASSISTANT STAFF. Addendum: 12/10/21 at 0759 by Jayde Montesinos LVN Amended: Links added.
--- NOTE | 2021-12-10 08:00 | NUR ---
Patient's Plan of Care was discussed and reviewed with MATERIALS HANDLER: PRANAV TORERS
[2021-12-10 08:03] LABS: ANION GAP 10.7 (8-16); CARBON DIOXIDE 24.4 mmol/L (21-32); CHLORIDE 104 mmol/L (98-107); CREATININE 0.8 mg/dL (0.6-1.3); GLUCOSE 88 mg/dL (74-106); POTASSIUM 3.1 mmol/L (3.5-5.1); SODIUM SERUM 136 mmol/L (136-145); UREA NITROGEN, BLOOD 6 mg/dL (7-18)
[2021-12-10 08:05] LABS: MAGNESIUM 1.8 mg/dL (1.8-2.4); PHOSPHORUS 2.1 mg/dL (2.5-4.9)
--- NOTE | 2021-12-10 08:35 | NUR ---
ADMINISTERED SCHEDULED MEDICATIONS. EDUCATED PT REGARDING MEDS ADMINISTERED. PT VERBALIZED UNDERSTANDING. WILL CONTINUE TO MONITOR.
[2021-12-10] MEDS: POTASSIUM CHLORIDE 10 MEQ TABER PO PRN (11:38)
--- NOTE | 2021-12-10 11:38 | NUR ---
PT POTASSIUM 3.1, ADMINISTERED PRN K DUR 40 MEQ. WILL CONTINUE TO MONITOR.
[2021-12-10 12:37] LABS: APPEARANCE,URINE CLEAR (CLEAR); BILIRUBIN,URINE NEGATIVE (NEGATIVE); BLOOD, URINE 1+ (NEGATIVE); COLOR,URINE YELLOW (YELLOW); LEUKOCYTE ESTERASE ,URINE TRACE (NEGATIVE); NITRITE, URINE NEGATIVE (NEGATIVE); PH,URINE 7.5 (5.0-9.0); UGLUCOSE NEGATIVE (NEGATIVE)
[2021-12-10 13:23] LABS: CALCIUM OXALATE CRYSTALS,UR None Seen /HPF (None Seen); HYALINE CASTS, URINE 0-10 /LPF (None Seen); OTHER CRYSTALS,URINE None Seen /HPF (None Seen); TRICHOMONAS,URINE None Seen /HPF (None Seen); TRIPLE PHOSPHATE CRYSTAL,UR None Seen /HPF (None Seen); URIC ACID CRYSTALS,URINE None Seen /HPF (None Seen); URINE AMORPHOUS URATE None Seen /HPF (None Seen); YEAST,URINE None Seen /HPF (None Seen)
[2021-12-10 13:24] LABS: COARSE GRANULAR CASTS,URINE None Seen /LPF (None Seen); FINE GRANULAR CASTS,URINE None Seen /LPF (None Seen); OTHER CASTS, URINE None Seen /LPF (None Seen); RED BLOOD CELL CASTS,URINE None Seen /LPF (None Seen); WAXY CASTS,URINE None Seen /LPF (None Seen)
[2021-12-10] MEDS: FLUCONAZOLE 100 MG TAB PO SCH (13:59)
--- NOTE | 2021-12-10 15:43 | NUR ---
DID ROUNDS ON PT. PT IN BED RESTING AT THIS TIME. RESPIRATIONS ARE EVEN AND UNLABORED. NO SIGNS OF DISTRESS NOTED. WILL CONTINUE TO MONITOR.
[2021-12-10 16:00] VITALS: BP 115/52
--- NOTE | 2021-12-10 18:43 | NUR ---
PT IN BED RESTING AT THIS TIME. RESPIRATIONS ARE EVEN AND UNLABORED. ALL NEEDS MET THROUGHOUT SHIFT. PT IS STABLE. WILL ENDORSE TO BOW MAKER CUSTOM NURSE.
[2021-12-10 20:00] VITALS: BP 117/54
[2021-12-11] MEDS: MEROPENEM 1,000 MG in NACL 0.9% 50 ML IV SCH ×3 (05:26→21:58)
[2021-12-11] MEDS: DEXT 5% /NACL 0.9% 1,000 ML IV SCH ×2 (06:45→17:05)
--- NOTE | 2021-12-11 07:15 | NUR ---
RECEIVED REPORT FROM DIALYSIS CLINICAL MANAGER NURSE FOR CONTINUITY OF CARE. PT IN BED SLEEPING AT THIS TIME. RESPIRATIONS ARE EVEN AND UNLABORED ON ROOM AIR. SO SIGNS OF PAIN OR DISCOMFORT NOTED. CALL LIGHT WITHIN REACH. ALL SAFETY MEASURES IN PLACE. WILL CONTINUE TO MONITOR.
--- NOTE | 2021-12-11 07:33 | NUR ---
PHYSICAL THERAPY CO-SIGN The Physical Therapy Progress Notes documented by Information Technology Officer have been reviewed. Reviewed/Co-Signed by: Mabel Yancey Documentation Done by: AILYN BAZZI PTA Addendum: 12/11/21 at 9794 by Mabel Yancey PT Amended: Links added.
[2021-12-11 08:00] VITALS: BP 104/51
--- NOTE | 2021-12-11 09:10 | NUR ---
ADMINISTERED ALL SCHEDULED MEDICATIONS. EDUCATED PT REGARDING MEDS ADMINISTERED. PT VERBALIZED UNDERSTANDING. WILL CONTINUE TO MONITOR.
--- NOTE | 2021-12-11 12:50 | NUR ---
IV ANTIBIOTICS ADMINISTERED BY RN. WILL CONTINUE TO MONITOR.
--- NOTE | 2021-12-11 15:55 | NUR ---
PT PULLED OUT IV. WILL ATTEMPT IV ACCESS.
[2021-12-11 16:00] VITALS: BP 118/57
--- NOTE | 2021-12-11 16:45 | NUR ---
ATTEMPT IV ACCESS. UNSUCCESSFUL. WILL ASK OTHER STAFF TO ATTEMPT. WILL CONTINUE TO MONITOR.
--- NOTE | 2021-12-11 17:01 | NUR ---
OTHER STAFF UNSUCCESSFUL WITH IV ACCESS. WILL ATTEMPT AGAIN.
--- NOTE | 2021-12-11 19:20 | NUR ---
ENDORSED PT TO DISPLAY COORDINATOR NURSE FOR CONTINUITY OF CARE. ALL NEEDS MET THROUGHOUT SHIFT. PT IS STABLE. PT STILL HAS NO IV ACCESS AT THIS TIME. ENDORSED TO DISPLAY COORDINATOR.
--- NOTE | 2021-12-11 19:22 | NUR ---
RECEIVED PATIENT REPORT FROM AM SHIFT NURSE FOR CONTINUITY OF CARE. PATIENT IN BED RESTING COMFORTABLY. BREATHING EVEN AND UNLABORED WITH NO SOB NOTED. NOT IN DISTRESS. DENIES ANY PAIN OR DISCOMFORT AT THIS TIME. ALL SAFETY MEASURES IN PLACE. CALL LIGHT WITHIN REACH. WILL CONTINUE WITH CURRENT PLAN OF CARE.
--- NOTE | 2021-12-11 20:00 | NUR ---
Patient's Plan of Care was discussed and reviewed with FREELANCE DISPLAYER: JERED PETE
--- NOTE | 2021-12-11 21:47 | NUR ---
ADMINISTERED SCHEDULE MEDICATION PER MD ORDER. TOLERATED WELL. NO ASE NOTED. ALL SAFETY MEASURES IN PLACE. CALL LIGHT WITHIN REACH. WHITE COMMUNICATION BOARD UPDATED. WILL CONTINUE TO MONITOR.
--- NOTE | 2021-12-11 23:53 | NUR ---
CHECKED ON PATIENT. SOUNDS ASLEEP. BREATHING EVEN AND UNLABORED WITH NO SOB NOTED. ALL SAFETY MEASURES IN PLACE. CALL LIGHT WITHIN REACH. WILL CONTINUE TO MONITOR.
[2021-12-12] VITALS: BP 127/58
--- NOTE | 2021-12-12 01:56 | NUR ---
ANSWERED PATIENT CALL LIGHT. PATIENT IS LOOKING FOR HIS BED REMOTE. IT WAS UNDER HIS PILLOW. PT NOT IN DISTRESS. DENIES ANY PAIN AT THIS TIME. PLACE CALL LIGHT WITHIN REACH. WILL CONTINUE TO MONITOR.
[2021-12-12] MEDS: DEXT 5% /NACL 0.9% 1,000 ML IV SCH ×3 (02:45→22:45)
--- NOTE | 2021-12-12 03:55 | NUR ---
CHECKED ON PATIENT. PT ASLEEP. RESPIRATION EVEN AND UNLABORED. NO SOB NOTED. CALL LIGHT WITHIN REACH. WILL CONTINUE TO MONITOR.
[2021-12-12] MEDS: MEROPENEM 1,000 MG in NACL 0.9% 50 ML IV SCH ×3 (05:13→22:00)
--- NOTE | 2021-12-12 05:41 | NUR ---
ANSWERED PATIENT CALL LIGHT. REQUESTING FOR WARM BLANKET. WARM BLANKET PROVIDED. ALL SAFETY MEASURES IN PLACE. CALL LIGHT WITHIN REACH. WILL CONTINUE TO MONITOR.
[2021-12-12 07:11] LABS: BASOPHILS # (AUTO) 0.1 K/uL (0.00-0.22); BASOPHILS % (AUTO) 0.5 % (0.0-2.0); EOSINOPHILS # (AUTO) 0.3 K/uL (0-0.4); EOSINOPHILS % (AUTO) 1.4 % (0.0-4.0); HEMATOCRIT 22.8 % (36-52); HEMOGLOBIN 7.4 g/dL (12.0-18.0); LYMPHOCYTES # (AUTO) 2.6 K/uL (2.0-11.5); LYMPHOCYTES % (AUTO) 13.6 % (20.5-51.1); MEAN CORPUSCULAR HEMOGLOBIN 31 pg (27-31); MEAN CORPUSCULAR HGB CONC 33 g/dL (33-37); MEAN CORPUSCULAR VOLUME 95.7 fL (80-94); MONOCYTES # (AUTO) 2.1 K/uL (0.8-1.0); MONOCYTES % (AUTO) 11.1 % (1.7-9.3); NEUTROPHILS # (AUTO) 14.2 K/uL (1.8-7.7); NEUTROPHILS % (AUTO) 73.4 % (42.2-75.2); PLATELET COUNT (AUTO) 383 K/uL (140-450); RED BLOOD CELL COUNT(AUTO) 2.38 MIL/uL (4.20-6.10); RED CELL DISTRIBUTION WIDTH 16.7 % (11.6-13.7); WHITE BLOOD COUNT (AUTO) 19.4 K/uL (4.8-10.8)
[2021-12-12 07:20] LABS: ALBUMIN 1.4 g/dL (3.4-5.0); ANION GAP 8.7 (8-16); ASPARTATE AMINOTRANSFERASE 29 U/L (15-37); CARBON DIOXIDE 27.3 mmol/L (21-32); CHLORIDE 103 mmol/L (98-107); CREATININE 0.7 mg/dL (0.6-1.3); GLUCOSE 100 mg/dL (74-106); MAGNESIUM 1.9 mg/dL (1.8-2.4); PHOSPHORUS 2.6 mg/dL (2.5-4.9); SODIUM SERUM 135 mmol/L (136-145); TOTAL BILIRUBIN 0.4 mg/dL (0.0-1.0); UREA NITROGEN, BLOOD 6 mg/dL (7-18)
--- NOTE | 2021-12-12 07:29 | NUR ---
ENDORSED PATIENT REPORT TO AM SHIFT NURSE FOR CONTINUITY OF CARE. PATIENT IS STABLE.
--- NOTE | 2021-12-12 07:30 | NUR ---
RECEIVED REPORT FROM PRODUCTION LINE WELDER FOR CONTINUITY OF CARE. PT APPEARS ASLEEP. NO ACUTE DISTRESS, SAFETY MEASURES MAINTAINED, CALL LIGHT WITHIN REACH, WILL CONTINUE TO MONITOR.
[2021-12-12 08:00] VITALS: BP 96/74
--- NOTE | 2021-12-12 12:18 | NUR ---
12/12/21 RD FOLLOW UP COMPLETED. PLEASE REFER TO NUTRITION ASSESSMENT UNDER CARE ACTIVITY FOR ESTIMATED NUTRITIONAL NEEDS. 1. CONTINUE WITH SOFT DIET. WHEN/IF MEDICALLY APPROPRIATE, ADVANCE DIET TO REGULAR TOLERATED OR PER MD 2. RECOMMEND SWALLOW EVAL D/T PT WITH SWALLOWING IMPAIRMENT 3. RD TO FOLLOW-UP 3-5 DAYS, MODERATE RISK RD TO FOLLOW-UP IN 3-5 DAYS PATIENT IS MODERATE RISK. HIREN GRISSOM RD Addendum: 12/13/21 at [address] RECOMMEND ENSURE BID D/T POOR PO INTAKE.
--- NOTE | 2021-12-12 14:41 | NUR ---
PHYSICAL THERAPY CO-SIGN The Physical Therapy Progress Notes documented by Bias Cutting Machine Operator have been reviewed. Reviewed/Co-Signed by: Mabel Yancey Documentation Done by: AILYN BAZZI PTA Addendum: 12/12/21 at 1441 by Mabel Yancey PT Amended: Links added.
[2021-12-12 16:00] VITALS: BP 116/56
--- NOTE | 2021-12-12 19:20 | NUR ---
RECEIVED PATIENT REPORT FROM AM SHIFT NURSE FOR CONTINUITY OF CARE. PATIENT IN BED RESTING COMFORTABLY. HOB IN SEMI-FOWLERS POSITION. BREATHING EVEN AND UNLABORED WITH NO SOB NOTED. NOT IN DISTRESS. DENIES ANY PAIN AT THIS TIME. ALL SAFETY MEASURES IN PLACE. CALL LIGHT WITHIN REACH. WILL CONTINUE WITH CURRENT PLAN OF CARE.
--- NOTE | 2021-12-12 21:20 | NUR ---
ADMINISTERED SCHEDULE MEDICATIONS PER MD ORDER. TOLERATED WELL. NO ASE NOTED. ALL SAFETY MEASURES MAINTAINED. CALL LIGHT WITHIN REACH. WILL CONTINUE TO MONITOR.
--- NOTE | 2021-12-12 23:56 | NUR ---
PATIENT SOUNDS ASLEEP. RESPIRATIONS EVEN AND UNLABORED. NO SOB NOTED. ALL SAFETY MEASURES IN PLACE. CALL LIGHT WITHIN REACH. WILL CONTINUE TO MONITOR.
[2021-12-13] VITALS: BP 109/52
--- NOTE | 2021-12-13 01:57 | NUR ---
ROUNDED ON PATIENT. PT ASLEEP. BREATHING EVEN AND UNLABORED. NO SOB NOTED. ALL SAFETY MEASURES IN PLACE. CALL LIGHT WITHIN REACH. WILL CONTINUE TO MONITOR.
--- NOTE | 2021-12-13 03:56 | NUR ---
PATIENT ASLEEP. HOB IN SEMI-FOWLERS. CHEST RISING AND FALLING. CALL LIGHT WITHIN REACH. WILL CONTINUE TO MONITOR.
[2021-12-13] MEDS: MEROPENEM 1,000 MG in NACL 0.9% 50 ML IV SCH ×3 (05:47→21:32)
--- NOTE | 2021-12-13 05:58 | NUR ---
SCHEDULED ANTIBIOTICS ADMINISTERED BY DYLAN YANG. TOLERATED WELL.
--- NOTE | 2021-12-13 07:26 | NUR ---
ENDORSED PATIENT REPORT TO AM SHIFT NURSE FOR CONTINUITY OF CARE. PATIENT IS STABLE.
[2021-12-13 07:27] LABS: BASOPHILS # (AUTO) 0.1 K/uL (0.00-0.22); BASOPHILS % (AUTO) 0.5 % (0.0-2.0); EOSINOPHILS # (AUTO) 0.2 K/uL (0-0.4); HEMOGLOBIN 7.2 g/dL (12.0-18.0); LYMPHOCYTES # (AUTO) 2.8 K/uL (2.0-11.5); MEAN CORPUSCULAR HEMOGLOBIN 32 pg (27-31); MEAN CORPUSCULAR HGB CONC 33 g/dL (33-37); MEAN CORPUSCULAR VOLUME 96.5 fL (80-94); MONOCYTES # (AUTO) 1.8 K/uL (0.8-1.0); MONOCYTES % (AUTO) 9.3 % (1.7-9.3); NEUTROPHILS # (AUTO) 14.9 K/uL (1.8-7.7); NEUTROPHILS % (AUTO) 75.2 % (42.2-75.2); PLATELET COUNT (AUTO) 342 K/uL (140-450); RED BLOOD CELL COUNT(AUTO) 2.28 MIL/uL (4.20-6.10); RED CELL DISTRIBUTION WIDTH 17.9 % (11.6-13.7); WHITE BLOOD COUNT (AUTO) 19.8 K/uL (4.8-10.8)
--- NOTE | 2021-12-13 07:27 | NUR ---
RECEIVED REPORT FROM ITALIAN TEACHER NURSE FOR CONTINUITY OF CARE. PATIENT ASLEEP NO DISTRESS NOTED. ALL SAFETY MEASURE IN PLACE.
[2021-12-13 07:53] LABS: ASPARTATE AMINOTRANSFERASE 27 U/L (15-37); CARBON DIOXIDE 25.4 mmol/L (21-32); CHLORIDE 106 mmol/L (98-107); MAGNESIUM 1.8 mg/dL (1.8-2.4); PHOSPHORUS 2.4 mg/dL (2.5-4.9); POTASSIUM 4.4 mmol/L (3.5-5.1); SODIUM SERUM 138 mmol/L (136-145); TOTAL BILIRUBIN 0.4 mg/dL (0.0-1.0)
[2021-12-13 07:59] LABS: ALBUMIN 1.4 g/dL (3.4-5.0); CREATININE 0.7 mg/dL (0.6-1.3); GLUCOSE 108 mg/dL (74-106); UREA NITROGEN, BLOOD 6 mg/dL (7-18)
[2021-12-13 08:00] VITALS: BP 126/56
[2021-12-13] MEDS: DEXT 5% /NACL 0.9% 1,000 ML IV SCH ×2 (09:14→18:50)
--- NOTE | 2021-12-13 09:20 | NUR ---
GIVEN HEPARIN TOLERATED WELL. PATIENT ON STABLE CONDITION WANT HIS CURTAIN CLOSED ALL THE TIME. CALL LIGHT WITH IN EASY REACH.
--- NOTE | 2021-12-13 10:31 | NUR ---
DR. GARDNER AT BED SIDE.
--- NOTE | 2021-12-13 12:04 | NUR ---
PATIENT ON BED ASLEEP ALL SAFETY MEASURE IN PLACE NEPHROSTOMY TUVE WORKING PROPERLY WITH YELLOW URINE OUT PUT.
--- NOTE | 2021-12-13 12:36 | NUR ---
RN GAVE IV PB ANTIBIOTIC TOLERATED WELL. NO ADVERSE REACTION NOTED.
--- NOTE | 2021-12-13 14:57 | NUR ---
PATIENT ON BED ASLEEP NO DISTRESS NOTED.
[2021-12-13 16:00] VITALS: BP 124/48
--- NOTE | 2021-12-13 16:51 | NUR ---
PATIENT CHANGE NOTE Addendum: 12/13/21 at 1652 by Hattie Galvez LVN NOT FINISH
--- NOTE | 2021-12-13 16:52 | NUR ---
PATIENT ALERT CHANGE NOTED WITH BOWEL MOVEMENT. KEEP SKIN DRY AND CLEAN.
--- NOTE | 2021-12-13 18:32 | NUR ---
PATIENT SITTING WHILE TRYING TO EAT DINNER BUT NOT EATING MUCH . ENCOURAGED TO INCREASE MORE TO EAT.
--- NOTE | 2021-12-13 19:19 | NUR ---
ENDORSE TO SCHOOL OF NURSING DIRECTOR NURSE FOR CONTINUITY OF CARE.
[2021-12-13 20:00] VITALS: BP 130/50
[2021-12-13] MEDS: HYDROcodone/APAP 5/325 MG 1 TAB TAB PO PRN (21:34)
[2021-12-14] MEDS: DEXT 5% /NACL 0.9% 1,000 ML IV SCH ×2 (03:26→14:00)
[2021-12-14] MEDS: HYDROcodone/APAP 5/325 MG 1 TAB TAB PO PRN ×2 (03:26→14:00)
[2021-12-14] MEDS: MEROPENEM 1,000 MG in NACL 0.9% 50 ML IV SCH ×3 (04:15→20:53)
--- NOTE | 2021-12-14 07:00 | NUR ---
ENDORSED PT TO REVIEW NURSE NURSE FOR CONTINUITY OF CARE. ALL NEEDS MET THROUGHOUT SHIFT. PT IS STABLE. Addendum: 12/14/21 at 1924 by Jayde Montesinos LVN INCORRECT TIME FOR THIS NOTE.
[2021-12-14 08:00] VITALS: BP 117/58
--- NOTE | 2021-12-14 08:00 | NUR ---
[facility]O [facility]. PT IS HARD OF HEARING. ABLE TO MAKE NEEDS KNOWN. NO SOB OR RESPIRATORY DISTRESS. ON RA. IVF INFUSING. IV DRESSING C/D/I, NO S/S OF INFECTION/INFILTRATION. BILATERAL NEPHROSTOMY NOTED WITH CLEAR, YELLOW OUTPUT. NEEDS ALL MET AT THIS TIME. SAFE PRECAUTIONS IN PLACE. WILL CONTINUE TO MONITOR CLOSELY.
--- NOTE | 2021-12-14 12:00 | NUR ---
PT RESTING WITH EYES CLOSED. HOB ELEVATED. BILATERAL NEPHROSTOMY DRAINING VIA GRAVITY. NO SOB OR RESPIRATORY DISTRESS NOTED. ON RA. NEEDS ALL MET AT THIS TIME. SAFE PRECAUTIONS IN PLACE. WILL CONTINUE TO MONITOR.
--- NOTE | 2021-12-14 14:55 | NUR ---
PRN PAIN MED GIVEN. SEE PAIN ASSESSMENT/REASSESSMENT FOR PAIN MANAGEMENT. PT STATES, "I SPILLED MY DRINK ON MYSELF". PT LINENS CLEANED. PROVIDED ICE WATER WITHIN REACH. NEEDS ALL MET AT THIS TIME. WILL CONTINUE TO MONITOR CLOSELY.
[2021-12-14 16:00] VITALS: BP 115/43
--- NOTE | 2021-12-14 17:55 | NUR ---
REPORT GIVEN TO RNBRIAN FOR CONTINUITY OF CARE.
--- NOTE | 2021-12-14 17:57 | NUR ---
ASSUMED CARE OF PT. PT IN BED RESTING AT THIS TIME. RESPIRATIONS ARE EVEN AND UNLABORED ON ROOM AIR. NO SIGNS OF DISTRESS NOTED. NO COMPLAINTS OF PAIN OR DISCOMFORT NOTED AT THIS TIME. CALL LIGHT WITHIN REACH. ALL SAFETY MEASURES IN PLACE. WILL CONTINUE TO MONITOR.
--- NOTE | 2021-12-14 19:00 | NUR ---
ENDORSED PT TO ASSESSMENT TECHNICIAN NURSE FOR CONTINUITY OF CARE. ALL NEEDS MET THROUGHOUT SHIFT. PT IS STABLE.
--- NOTE | 2021-12-14 19:30 | NUR ---
RECEIVED BEDSIDE REPORT FROM DAY SHIFT RN FOR CONTINUITY OF CARE. PT IS SLEEPING COMFORTABLY IN BED. PT IS ON RA. PT IS NOT IN ANY DISTRESS. BREATHING RHYTHMIC AND UNLABORED. IVF RUNNING MD ORDER. CALL LIGHT WITHIN REACH. ALL SAFETY MEASURES TAKEN. WILL CONTINUE TO MONITOR THE PT.
[2021-12-14 20:00] VITALS: BP 110/56
--- NOTE | 2021-12-14 21:00 | NUR ---
ALL DUE MEDS GIVEN. NO ADVERSE REACTION NOTED. WILL CONTINUE TO MONITOR THE PT.
[2021-12-15] MEDS: DEXT 5% /NACL 0.9% 1,000 ML IV SCH ×3 (00:45→21:37)
--- NOTE | 2021-12-15 01:00 | NUR ---
PT IS SLEEPING IN BED COMFORTABLY. PT IS ON RA. IVF RUNNING PER MD ORDER. NOT IN ANY DISTRESS. BREATHING RHYTHMIC AND UNLABORED. CALL LIGHT WITHIN REACH. ALL SAFETY MEASURES TAKEN. WILL CONTINUE TO MONITOR THE PT.
--- NOTE | 2021-12-15 03:45 | NUR ---
PT IS SLEEPING IN BED COMFORTABLY. PT IS NOT IN ANY DISTRESS AT THIS TIME. BREATHING RHYTHMIC AND UNLABORED. IVF RUNNING PER MD ORDER. CALL LIGHT WITHIN REACH. ALL SAFETY MEASURES TAKEN. WILL CONTINUE TO MONITOR THE PT.
[2021-12-15] MEDS: MEROPENEM 1,000 MG in NACL 0.9% 50 ML IV SCH (05:06)
--- NOTE | 2021-12-15 05:10 | NUR ---
ALL DUE MEDS GIVEN. NO ADVERSE REACTION NOTED. WILL CONTINUE TO MONITOR THE PT.
--- NOTE | 2021-12-15 07:30 | NUR ---
ENDORSED PT TO DAY SHIFT RN FOR CONTINUITY OF CARE. PT IS STABLE.
--- NOTE | 2021-12-15 07:32 | NUR ---
RECEIVED REPORT FROM MRI TECHNOLOGIST NURSE FOR CONTINUITY OF CARE. PT IN BED AT THIS TIME SLEEPING. RESPIRATIONS ARE EVEN AND UNLABORED, ON ROOM AIR. NO SIGNS OF DISTRESS NOTED. PT IS ALERT AND ORIENTED X3. ABLE TO VERBALIZE NEEDS TO STAFF. PT HAS BILATERAL NEPHROSTOMY TUBES, DRAINING CLEAR YELLOW FLUID. PT SKIN IS WARM, DRY, AND INTACT. PT HAS IV TO R HAND, 24G. NO COMPLAINTS OF PAIN OR DISCOMFORT. CALL LIGHT WITHIN REACH. ALL SAFETY MEASURES IN PLACE. WILL CONTINUE TO MONITOR.
[2021-12-15 08:00] VITALS: BP 123/51
--- NOTE | 2021-12-15 11:42 | NUR ---
DID ROUNDS ON PT. PT IN BED STATING HE WANTS MORE BLANKETS, THAT HE IS FEELING COLD. NO S/S OF FEVER. GAVE PT ANOTHER BLANKET. CALL LIGHT WITHIN REACH. WILL CONTINUE TO MONITOR.
--- NOTE | 2021-12-15 15:36 | NUR ---
PT PRESSED CALL LIGHT, ASKING IF IT IS POSSIBLE TO TURN ON HEATER IN HIS ROOM. TURNED UP HEATER IN PT ROOM. CALL LIGHT WITHIN REACH. ALL SAFETY MEASURES IN PLACE. WILL CONTINUE TO MONITOR.
[2021-12-15 16:00] VITALS: BP 119/53
--- NOTE | 2021-12-15 16:25 | NUR ---
ASSISTED WITH CLEANING AND REPOSITIONING PT. PT TOLERATED WELL. WILL CONTINUE TO MONITOR.
--- NOTE | 2021-12-15 19:22 | NUR ---
ENDORSED PT TO AIRCRAFT BODY REPAIRER NURSE FOR CONTINUITY OF CARE. PT IS STABLE.
--- NOTE | 2021-12-15 19:23 | NUR ---
RECEIVED PATIENT FROM AM NURSE FOR CONTINUITY OF CARE. PATIENT IS WELL RESTED, ON ROOM AIR. NO ACUTE DISTRESS. SKIN WARM AND DRY TO THE TOUCH. IVF OF D5 0.9 NACL RUNNING AT 100 MLS/HR. NO COMPLAINTS OF PAIN. ALL SAFETY MEASURES IN PLACE. CALL LIGHT WITHIN REACH.
--- NOTE | 2021-12-15 21:35 | NUR ---
SCHEDULED MEDICATION DUE GIVEN. PT IS STABLE.
--- NOTE | 2021-12-15 21:40 | NUR ---
IV INFILTRATED. INSERTED A NEW PERIPHERAL IV ON THE RIGHT FOREARM WITH GOOD BACK FLOW OF BLOOD, TOLERATED WELL.
[2021-12-16] VITALS: BP 112/65
[2021-12-16] MEDS: DEXT 5% /NACL 0.9% 1,000 ML IV SCH ×2 (06:45→16:15)
--- NOTE | 2021-12-16 07:14 | NUR ---
ENDORSED PATIENT TO AM NURSE FOR CONTINUITY OF CARE. NO SOB. PT IS STABLE.
[2021-12-16 07:18] LABS: BASOPHILS # (AUTO) 0.1 K/uL (0.00-0.22); BASOPHILS % (AUTO) 0.7 % (0.0-2.0); EOSINOPHILS # (AUTO) 0.2 K/uL (0-0.4); EOSINOPHILS % (AUTO) 1.1 % (0.0-4.0); LYMPHOCYTES % (AUTO) 11.5 % (20.5-51.1); MEAN CORPUSCULAR HEMOGLOBIN 32 pg (27-31); MEAN CORPUSCULAR HGB CONC 33 g/dL (33-37); MONOCYTES # (AUTO) 1.4 K/uL (0.8-1.0); MONOCYTES % (AUTO) 8.4 % (1.7-9.3); NEUTROPHILS # (AUTO) 13.5 K/uL (1.8-7.7); NEUTROPHILS % (AUTO) 78.3 % (42.2-75.2); PLATELET COUNT (AUTO) 310 K/uL (140-450); RED BLOOD CELL COUNT(AUTO) 1.97 MIL/uL (4.20-6.10); RED CELL DISTRIBUTION WIDTH 17.4 % (11.6-13.7); WHITE BLOOD COUNT (AUTO) 17.2 K/uL (4.8-10.8)
[2021-12-16 07:32] LABS: ALBUMIN 1.2 g/dL (3.4-5.0); ANION GAP 8.8 (8-16); ASPARTATE AMINOTRANSFERASE 26 U/L (15-37); CARBON DIOXIDE 26.7 mmol/L (21-32); CHLORIDE 105 mmol/L (98-107); CREATININE 0.6 mg/dL (0.6-1.3); GLUCOSE 111 mg/dL (74-106); MAGNESIUM 1.7 mg/dL (1.8-2.4); PHOSPHORUS 2.2 mg/dL (2.5-4.9); POTASSIUM 3.5 mmol/L (3.5-5.1); SODIUM SERUM 137 mmol/L (136-145); TOTAL BILIRUBIN 0.3 mg/dL (0.0-1.0); UREA NITROGEN, BLOOD 8 mg/dL (7-18)
[2021-12-16 08:00] VITALS: BP 110/72
[2021-12-16 08:31] LABS: HEMOGLOBIN 6.3 g/dL (12.0-18.0)
[2021-12-16] MEDS: ACETAMINOPHEN 325 MG TAB PO PRN (08:57)
[2021-12-16 16:00] VITALS: BP 118/56
--- NOTE | 2021-12-16 17:00 | NUR ---
1 UNIT PRBC'S STARTED, PT IN STABLE CONDITION. VSS. NAD NOTED.
--- NOTE | 2021-12-16 19:16 | NUR ---
ENDORSED CARE TO PATTERN GRADER SUPERVISOR RN.
[2021-12-16 20:00] VITALS: BP 133/43
--- NOTE | 2021-12-16 20:00 | NUR ---
RECEIVED BEDSIDE REPORT FROM DAY RN FOR CONTINUITY OF CARE. RECEIVED PATIENT LAYING IN BED, A/A/OX3. PATIENT RECEIVING BLOOD TRANSFUSION AT THIS TIME. NO SIGN AND SYMPTOMS OF DISTRESS NOTED. NO COMPLAIN FROM THE PATIENT AT THIS TIME. WILL CONTINUE TO MONITOR THE PATIENT WHILE GETTING THE BLOOD TRANSFUSION FOR ANY TRANSFUSION REACTION. FALL PRECAUTION IMPLEMENTED. BED IN LOW AND LOCKED POSITION. SIDE RAILS UP X2, BED ALARM ON. CALL LIGHT WITHIN REACH. WILL CONTINUE POC AND OBSERVATION.
--- NOTE | 2021-12-16 20:40 | NUR ---
1 UNIT OF PRBC DONE. NO TRANSFUSION REACTION NOTED. NO COMPLAIN FROM THE PATIENT. VITAL SIGNS AFTER BLOOD TRANSFUSION: BP-153/61, HR-112, RR-17, TEMP-98.0, 96% ON RA. NO COMPLAIN OF PAIN. WILL CONTINUE TO OBSERVE THE PATIENT AND WILL ORDER H/H IN TWO HOURS POST TRANSFUSION.
--- NOTE | 2021-12-16 22:00 | NUR ---
ALL DUE MEDS GIVEN AND PATIENT TOLERATED IT WELL. NO COMPLAIN FROM THE PATIENT AND NO ADVERSE DRUG REACTION NOTED. CALL LIGHT WITHIN REACH.
[2021-12-16 22:43] LABS: HEMATOCRIT 26.8 % (36-52); HEMOGLOBIN 8.9 g/dL (12.0-18.0)
--- NOTE | 2021-12-16 22:45 | NUR ---
LATEST HEMOGLOBIN 8.9, HEMATOCRIT-26.8 POST TRANSFUSION.
--- NOTE | 2021-12-17 00:30 | NUR ---
PATIENT ASLEEP AT THIS TIME. VISIBLE CHEST RISE AND FALL NOTED. WILL CONTINUE TO OBSERVE.
[2021-12-17] MEDS: DEXT 5% /NACL 0.9% 1,000 ML IV SCH ×3 (00:58→22:58)
--- NOTE | 2021-12-17 02:00 | NUR ---
PATIENT WOKE UP AND REQUESTED V8 JUICE AND WARM WATER. PROVIDED TO THE PATIENT REQUESTED. CALL LIGHT WITHIN REACH.
[2021-12-17] MEDS: ACETAMINOPHEN 325 MG TAB PO PRN ×4 (02:29→20:12)
--- NOTE | 2021-12-17 04:36 | NUR ---
AM CARE WAS OFFERED TO THE PATIENT BUT THE PATIENT REFUSED AND STATED "LATER" .
--- NOTE | 2021-12-17 06:39 | NUR ---
PATIENT STABLE. NO ACUTE EVENT THROUGHOUT THE NIGHT. PT NOT IN ANY DISTRESS AND NO COMPLAIN AT THIS TIME. ALL NEEDS ATTENDED. CALL LIGHT WITHIN REACH. WILL ENDORSE THE PATIENT TO THE ONCOMING RN FOR CONTINUITY OF CARE.
--- NOTE | 2021-12-17 07:30 | NUR ---
ENDORSED PT TO DAY RN . PT STABLE. SIGNING OFF.
--- NOTE | 2021-12-17 07:35 | NUR ---
RECEIVED REPORT FROM RETAIL WIRELESS SALES REPRESENTATIVE NURSE FOR CONTINUITY OF CARE. PT AWAKE IN BED. BREATHING SYMMETRICAL. C/O LOWER ABDOMEN PAIN 12/26 AND ASKING FOR TYLENOL, TYLENOL NOT DUE UNTIL 8AM, OFFERED NORCO BUT PT WANTS TYLENOL AND SAID WILL WAIT FOR 8AM. ENCOURAGED DEEP BREATHING. OFFERED TO TURN ON TV FOR DISTRACTION BUT REFUSED. WITH RFA 22G RUNNING D5NS AT 100CC/HR. CALL LIGHT WITHIN REACH. ALL SAFETY MEASURES IN PLACE.
[2021-12-17 08:00] VITALS: BP 139/53
[2021-12-17 10:09] LABS: BASOPHILS # (AUTO) 0.1 K/uL (0.00-0.22); BASOPHILS % (AUTO) 0.6 % (0.0-2.0); EOSINOPHILS # (AUTO) 0.2 K/uL (0-0.4); EOSINOPHILS % (AUTO) 0.9 % (0.0-4.0); HEMOGLOBIN 8.5 g/dL (12.0-18.0); LYMPHOCYTES # (AUTO) 1.9 K/uL (2.0-11.5); LYMPHOCYTES % (AUTO) 9.6 % (20.5-51.1); MEAN CORPUSCULAR HEMOGLOBIN 31 pg (27-31); MEAN CORPUSCULAR HGB CONC 33 g/dL (33-37); MEAN CORPUSCULAR VOLUME 93.4 fL (80-94); MONOCYTES # (AUTO) 1.6 K/uL (0.8-1.0); MONOCYTES % (AUTO) 8.2 % (1.7-9.3); NEUTROPHILS # (AUTO) 16.2 K/uL (1.8-7.7); NEUTROPHILS % (AUTO) 80.7 % (42.2-75.2); PLATELET COUNT (AUTO) 295 K/uL (140-450); RED BLOOD CELL COUNT(AUTO) 2.78 MIL/uL (4.20-6.10)
[2021-12-17 10:26] LABS: MAGNESIUM 2.2 mg/dL (1.8-2.4); PHOSPHORUS 2.8 mg/dL (2.5-4.9)
--- NOTE | 2021-12-17 10:32 | NUR ---
PT IN BED AWAKE. BREATHING SYMMETRICAL. PRN NORCO GIVEN FOR C/O ABDOMINAL PAIN. BILATERAL NEPHROSTOMY TUBE INTACT DRAINING YELLOW URINE. CALL LIGHT WITHIN REACH.
[2021-12-17] MEDS: HYDROcodone/APAP 5/325 MG 1 TAB TAB PO PRN (10:35)
[2021-12-17 10:36] LABS: ANION GAP 6.1 (8-16); CARBON DIOXIDE 27.5 mmol/L (21-32); CHLORIDE 107 mmol/L (98-107); CREATININE 0.7 mg/dL (0.6-1.3); GLUCOSE 111 mg/dL (74-106); POTASSIUM 3.6 mmol/L (3.5-5.1); SODIUM SERUM 137 mmol/L (136-145); UREA NITROGEN, BLOOD 12 mg/dL (7-18)
[2021-12-17 10:41] LABS: WHITE BLOOD COUNT (AUTO) 20.1 K/uL (4.8-10.8)
--- NOTE | 2021-12-17 14:29 | NUR ---
PT ASLEEP IN BED. BREATHING SYMMETRICAL. CALL LIGHT WITHIN REACH. WILL CONTINUE TO MONITOR.
--- NOTE | 2021-12-17 15:22 | NUR ---
12/17/21 RD FOLLOW UP COMPLETED PLEASE REFER TO NUTRITION ASSESSMENT UNDER CARE ACTIVITY FOR ESTIMATED NUTRITIONAL NEEDS. 1. RECOMMENDED SWALLOW EVALUATION D/T POOR PO INTAKE -FOLLOW ST RECOMMENDATIONS 2. RECOMMEND ENSURE TID PER RD PROTOCOL 3. RD TO FOLLOW-UP 2-3 DAYS, HIGH RISK ANGELA ZHENG RD
[2021-12-17 16:00] VITALS: BP 108/51
--- NOTE | 2021-12-17 16:32 | NUR ---
SPOKE WITH ACCT EXEC ANGELA, PT CONTINUES TO REFUSE TO EAT FOOD AND ONLY WANTS TO DRINK FLUIDS (WATER, JUICE AND ENSURE) RECOMMENDED SWALLOW EVAL. DR COMER MADE AWARE, ORDER FOR SWALLOW EVAL IN PLACE.
--- NOTE | 2021-12-17 17:20 | NUR ---
PT'S LAST KNOWN BOWEL MOVEMENT WAS 12/14. OFFERED BOWEL MANAGEMENT MEDICATION BUT PT REFUSED AT THIS TIME. Addendum: 12/17/21 at 1725 by Marya Mendieta RN LEFT MESSAGE TO DR KIRAN REGARDING LEAKING NEPHROSTOMY TUBE.
[2021-12-17 20:00] VITALS: BP 106/40
[2021-12-18] MEDS: ACETAMINOPHEN 325 MG TAB PO PRN ×3 (02:11→16:45)
[2021-12-18 05:34] VITALS: BP 120/52
[2021-12-18 06:08] LABS: FOLIC ACID 7.4 ng/mL (>3.0)
[2021-12-18 06:42] LABS: BASOPHILS # (AUTO) 0.1 K/uL (0.00-0.22); BASOPHILS % (AUTO) 0.8 % (0.0-2.0); EOSINOPHILS # (AUTO) 0.2 K/uL (0-0.4); EOSINOPHILS % (AUTO) 1.4 % (0.0-4.0); HEMATOCRIT 23.3 % (36-52); HEMOGLOBIN 7.8 g/dL (12.0-18.0); LYMPHOCYTES % (AUTO) 12.1 % (20.5-51.1); MEAN CORPUSCULAR HEMOGLOBIN 31 pg (27-31); MEAN CORPUSCULAR HGB CONC 33 g/dL (33-37); MEAN CORPUSCULAR VOLUME 93.8 fL (80-94); MONOCYTES # (AUTO) 1.3 K/uL (0.8-1.0); MONOCYTES % (AUTO) 7.9 % (1.7-9.3); NEUTROPHILS # (AUTO) 12.8 K/uL (1.8-7.7); NEUTROPHILS % (AUTO) 77.8 % (42.2-75.2); PLATELET COUNT (AUTO) 294 K/uL (140-450); RED BLOOD CELL COUNT(AUTO) 2.49 MIL/uL (4.20-6.10); RED CELL DISTRIBUTION WIDTH 18.7 % (11.6-13.7); WHITE BLOOD COUNT (AUTO) 16.5 K/uL (4.8-10.8)
[2021-12-18 06:59] LABS: ANION GAP 8.7 (8-16); CARBON DIOXIDE 26.1 mmol/L (21-32); CHLORIDE 107 mmol/L (98-107); CREATININE 0.7 mg/dL (0.6-1.3); GLUCOSE 98 mg/dL (74-106); POTASSIUM 3.8 mmol/L (3.5-5.1); SODIUM SERUM 138 mmol/L (136-145); UREA NITROGEN, BLOOD 14 mg/dL (7-18)
--- NOTE | 2021-12-18 07:03 | NUR ---
pt c/o lower mid abdominal pain . tender on palpation. l nephrostomy 550 ml emptied right 700 ml. pt voiding but incontinent. bladder scan done [address] Osman messaged . awaiting call back .
--- NOTE | 2021-12-18 07:35 | NUR ---
straight catheterization x 1 ordered. endorsed to Morgan RICHARDSON
--- NOTE | 2021-12-18 08:39 | NUR ---
PT. WITH CHANGE OF RADU SCALE AT MODERATE RISK, CONTINUE TO FOLLOW PRESSURE INJURY PREVENTION INTERVENTIONS. -TURN AND REPOSITION PATIENT Q 2H -INSPECT SKIN UNDER AND AROUND MEDICAL DEVICES. -ASSESS AND MONITOR SKIN CONDITION DURING POSITION CHANGE -OFFLOAD BILATERAL HEELS BY PLACING PILLOWS UNDER CALVES AT ALL TIMES, UNLESS OTHERWISE CONTRAINDICATED -APPLY HEEL PROTECTORS -PRESSURE REDISTRIBUTION SURFACE AND OFFLOADING SACRALCOCCYX -MANAGE FRICTION AND SHEAR BY USING LIFT SHEET TO REPOSITION PATIENT -HOB 30 DEGREE TOLERATE -PLEASE FOLLOW RD RECOMMENDATIONS PLEASE NOTIFIED WOUND CARE NURSE FOR ANY CHANGE OF SKIN CONDITION
[2021-12-18] MEDS: DEXT 5% /NACL 0.9% 1,000 ML IV SCH (08:45)
[2021-12-18] MEDS ORDERED: ACET-10509 PO (09:49)
[2021-12-18 15:51] VITALS: BP 135/60
--- NOTE | 2021-12-18 17:00 | NUR ---
PT DC BACK TO [facility]. ATTEMPTED SEVERAL CALLS TO GIVE REPORT THROUGHOUT THE DAY, NO ANSWER OR NURSE TO BUSY. PT IV TAKEN OUT INTACT. PLACED ALL RELEVANT INFO IN DC PAPERS FOR THE [facility] NURSE. ROWELL SURE ALL DC ORDERS WERE IN PAPER AND PT WAS STABLE ITH NERPHROSTOMY BAGS LEFT nd right as well as catheter.
== END 2021-12-18 17:50 | DRG 871 ==
LOC: MED 13:42 → MMU 17:06 → MTU 17:20
PROC: 0T943ZZ Drainage of Left Kidney Pelvis, Percutaneous Approach (ICD-10-PCS; principal; 2021-12-05)
PROC: 0T933ZZ Drainage of Right Kidney Pelvis, Percutaneous Approach (ICD-10-PCS; 2021-12-05)
PROC: 30233N1 Transfusion of Nonautologous Red Blood Cells into Peripheral Vein, Percutaneous Approach (ICD-10-PCS; 2021-12-16)
DX: A41.9 Sepsis, unspecified organism (principal); E43 Unspecified severe protein-calorie malnutrition; N39.0 Urinary tract infection, site not specified; E87.1 Hypo-osmolality and hyponatremia; T83.012A Breakdown (mechanical) of nephrostomy catheter, initial encounter; E87.6 Hypokalemia; C67.9 Malignant neoplasm of bladder, unspecified; D64.9 Anemia, unspecified; R59.9 Enlarged lymph nodes, unspecified; Y83.8 Other surgical procedures as the cause of abnormal reaction of the patient, or of later complication, without mention of misadventure at the time of the procedure; Z20.822 Contact with and (suspected) exposure to COVID-19; Z85.51 Personal history of malignant neoplasm of bladder; Y92.89 Other specified places as the place of occurrence of the external cause
CPT/HCPCS: 36415; 50432; 71045; 71250; 77003; 80048; 80053; 81001; 82150; 82607; 82728; 82746; 83036; 83540; 83690; 83735; 83880; 84100; 84134; 84443; 84484; 85018; 85025; 85045; 85610; 85730; 86886; 86900; 86901; 86920; 87040; 87081; 87086; 92526; 93005; 96365; 97110; 97112; 97116; 97163-GP; 97530; 99285; C1729; J0690; J0696; J1644; J2001; J2185; J2250; J2310; J3010; J3475; J3480; J3490; J7030; J7060; P9016; Q0092; Q9967

== ENCOUNTER 2022-01-21 09:52 | Inpatient (IN) | payer OTHER, SELFPAY ==
[~2022-01-21] VITALS: Ht 157.5 cm; Wt 44.9 kg
[~2022-01-21 09:52] MED LIST: ACET-1182 PO; CARB15DR61 OT; CEFT1PDS IJ; DEXT5SYR3 PO; DOCU-299 PO; FER325 PO; LACT10SO11 PO; MEGE40SU3 PO; MIRT-91 PO; NETA2.5D3 OP; ONDA2SOL45 IM/IVP; PANT40EC56 PO; QUET25TA46 PO; VITC500 PO; ZOLP5TAB1 PO
--- NOTE | 2022-01-21 09:54 | NUR ---
PT BIBA FROM [facility] TAKEN TO ER BED 7.
[2022-01-21 09:58] VITALS: BP 101/54
--- NOTE | 2022-01-21 10:05 | NUR ---
PT HAD EPISODE OF DARK BORWN-RED EMESIS ESTIMATED 75CC. MADE AWARE AT THIS TIME.
--- NOTE | 2022-01-21 10:09 | NUR ---
DR. DECKER AT PT BEDSIDE FOR FURTHER EVALUATION.
[2022-01-21] MEDS ORDERED: ONDANSETRON 4 MG/2 ML VIAL IVP ONE (10:15)
[2022-01-21] MEDS ORDERED: NACL 0.9% 500 ML IV SCH (10:15)
[2022-01-21] MEDS ORDERED: PANTOPRAZOLE 40 MG INJ VIAL IVP ONE (10:15)
--- NOTE | 2022-01-21 10:18 | NUR ---
lab bedside collecting bloodwork
--- NOTE | 2022-01-21 10:40 | NUR ---
PER [employer] SERVICES ADMINISTRATOR JOSE ANTONIO SHE WAS ONLY ABLE TO DRAW CBC, CMP, AND LATIC AT THIS TIME.
[2022-01-21 10:53] LABS: APPEARANCE,URINE CLOUDY (CLEAR); BILIRUBIN,URINE 2+ (NEGATIVE); BLOOD, URINE 3+ (NEGATIVE); COLOR,URINE RED (YELLOW); LEUKOCYTE ESTERASE ,URINE 3+ (NEGATIVE); NITRITE, URINE POSITIVE (NEGATIVE); PH,URINE 7.5 (5.0-9.0); UGLUCOSE NEGATIVE (NEGATIVE)
[2022-01-21 10:56] LABS: HEMATOCRIT 26.7 % (36-52); HEMOGLOBIN 8.6 g/dL (12.0-18.0); MEAN CORPUSCULAR HEMOGLOBIN 32 pg (27-31); MEAN CORPUSCULAR HGB CONC 32 g/dL (33-37); MEAN CORPUSCULAR VOLUME 99.6 fL (80-94); PLATELET COUNT (AUTO) 149 K/uL (140-450); RED BLOOD CELL COUNT(AUTO) 2.68 MIL/uL (4.20-6.10); RED CELL DISTRIBUTION WIDTH 21.9 % (11.6-13.7)
--- NOTE | 2022-01-21 10:58 | NUR ---
VAMP CUT OUT WORKER AT PT BEDSIDE.
--- NOTE | 2022-01-21 11:01 | NUR ---
PATIENT BROUGHT IN BY AMB FROM [facility] [place] FOR HYPOTENSION. C/O LOSS OF APPITITE 3 DAYS. PER EMS BLOOD SUGAR 79. AOX1, NON LINDSAY BAL, NEUROLOGICALLY AT BASELINE. BILATERAL NEPHROSTOMY & BLOOD IN URINE BAG. VSS PMH: BLADDER CANCER, MULNUTRITION
[2022-01-21 11:03] LABS: WHITE BLOOD COUNT (AUTO) 29.6 K/uL (4.8-10.8)
[2022-01-21 11:12] LABS: LIPASE -9 U/L (73-393)
[2022-01-21 11:12] LABS: RBC,URINE 20-50 /HPF (0-5)
[2022-01-21 11:13] LABS: TRICHOMONAS,URINE None Seen /HPF (None Seen); YEAST,URINE None Seen /HPF (None Seen)
[2022-01-21 11:14] LABS: CALCIUM OXALATE CRYSTALS,UR None Seen /HPF (None Seen)
[2022-01-21 11:15] LABS: COARSE GRANULAR CASTS,URINE None Seen /LPF (None Seen); FINE GRANULAR CASTS,URINE None Seen /LPF (None Seen); HYALINE CASTS, URINE None Seen /LPF (None Seen); OTHER CASTS, URINE None Seen /LPF (None Seen); OTHER CRYSTALS,URINE None Seen /HPF (None Seen); RED BLOOD CELL CASTS,URINE None Seen /LPF (None Seen); TRIPLE PHOSPHATE CRYSTAL,UR None Seen /HPF (None Seen); URIC ACID CRYSTALS,URINE 0-10 /HPF (None Seen); URINE AMORPHOUS URATE None Seen /HPF (None Seen); WAXY CASTS,URINE None Seen /LPF (None Seen)
[2022-01-21] MEDS ORDERED: fentaNYL citrate 0.05 MG/ML VIAL IVP ONE (11:15)
[2022-01-21 11:21] LABS: LYMPHOCYTES % (MANUAL) 4 % (20-46); MONOCYTES % (MANUAL) 3 % (5-12)
[2022-01-21] MEDS ORDERED: cefTRIAXone 1,000 MG VIAL ONE (11:25)
[2022-01-21 11:36] LABS: PROTHROMBIN TIME 13.8 secs (10.8-13.4)
[2022-01-21 12:13] LABS: ALBUMIN 1.5 g/dL (3.4-5.0); ANION GAP 21.1 (8-16); ASPARTATE AMINOTRANSFERASE 32 U/L (15-37); CARBON DIOXIDE 12.3 mmol/L (21-32); CHLORIDE 108 mmol/L (98-107); CREATININE 1.8 mg/dL (0.6-1.3); GLUCOSE 58 mg/dL (74-106); POTASSIUM 4.4 mmol/L (3.5-5.1); SODIUM SERUM 137 mmol/L (136-145); TOTAL BILIRUBIN 0.6 mg/dL (0.0-1.0); UREA NITROGEN, BLOOD 42 mg/dL (7-18)
--- NOTE | 2022-01-21 12:14 | NUR ---
RANJAN GIVEN TO LAB
[2022-01-21] MEDS ORDERED: NACL 0.9% 500 ML IV ONE (12:15)
[2022-01-21] MEDS ORDERED: ONDANSETRON 4 MG/2 ML VIAL IM/IVP PRN ×2 (12:40→14:25)
[2022-01-21] MEDS ORDERED: LORazepam 2 MG/ML VIAL IM/IVP PRN (12:40)
[2022-01-21] MEDS ORDERED: MORPHINE SULFATE 2 MG/ML SYR IVP PRN (12:40)
[2022-01-21] MEDS ORDERED: HYDROcodone/APAP 5/325 MG 1 TAB TAB PO PRN (12:40)
[2022-01-21] MEDS ORDERED: DOCUSATE SODIUM 100 MG GELCAP PO PRN ×2 (12:40→14:25)
[2022-01-21] MEDS ORDERED: ACETAMINOPHEN 325 MG TAB PO PRN ×4 (12:40→14:25)
[2022-01-21] MEDS ORDERED: ZOLPIDEM 5 MG TAB PO PRN (12:40)
[2022-01-21] MEDS ORDERED: CARBAMIDE PEROXIDE 6.5% OT 15 ML BTL OT SCH (12:46)
--- NOTE | 2022-01-21 12:46 | NUR ---
TELE-HOLD IN ER BED 7.
[2022-01-21] MEDS ORDERED: guaiFENesin DM 200/20 MG-10 ML 10 ML UDC PO PRN (12:55)
[2022-01-21 13:46] LABS: BASOPHILS % (AUTO) 0.1 % (0.0-2.0); EOSINOPHILS % (AUTO) 0.1 % (0.0-4.0); HEMATOCRIT 23.1 % (36-52); HEMOGLOBIN 7.4 g/dL (12.0-18.0); LYMPHOCYTES # (AUTO) 1.2 K/uL (2.0-11.5); LYMPHOCYTES % (AUTO) 4.3 % (20.5-51.1); MEAN CORPUSCULAR HEMOGLOBIN 32 pg (27-31); MEAN CORPUSCULAR HGB CONC 32 g/dL (33-37); MEAN CORPUSCULAR VOLUME 97.8 fL (80-94); MONOCYTES # (AUTO) 1.5 K/uL (0.8-1.0); MONOCYTES % (AUTO) 5.6 % (1.7-9.3); NEUTROPHILS # (AUTO) 24.5 K/uL (1.8-7.7); NEUTROPHILS % (AUTO) 89.9 % (42.2-75.2); PLATELET COUNT (AUTO) 137 K/uL (140-450); RED BLOOD CELL COUNT(AUTO) 2.36 MIL/uL (4.20-6.10); RED CELL DISTRIBUTION WIDTH 21.4 % (11.6-13.7)
[2022-01-21 13:49] LABS: WHITE BLOOD COUNT (AUTO) 27.2 K/uL (4.8-10.8)
[2022-01-21] MEDS: NACL 0.9% 1,000 ML IV SCH (13:58)
[2022-01-21 14:01] LABS: ALBUMIN 1.3 g/dL (3.4-5.0); ANION GAP 18.1 (8-16); ASPARTATE AMINOTRANSFERASE 18 U/L (15-37); CARBON DIOXIDE 14.8 mmol/L (21-32); CHLORIDE 112 mmol/L (98-107); CREATININE 1.9 mg/dL (0.6-1.3); GLUCOSE 63 mg/dL (74-106); LIPASE -5 U/L (73-393); POTASSIUM 3.9 mmol/L (3.5-5.1); SODIUM SERUM 141 mmol/L (136-145); TOTAL BILIRUBIN 0.3 mg/dL (0.0-1.0); UREA NITROGEN, BLOOD 40 mg/dL (7-18)
[2022-01-21] MEDS ORDERED: NACL 0.9% 1,000 ML IV SCH (14:25)
--- NOTE | 2022-01-21 14:28 | NUR ---
AUTO DEALER AT PT BEDSIDE.
--- NOTE | 2022-01-21 16:09 | NUR ---
Patient will be admitted to care of NAHOMI. Admited to TELE Will go to room 121B. Belongings list completed. Report to GIVEN TO JAX. Addendum: 01/21/22 at 1613 by [email or web address] BEDSIDE REPORT GIVEN TO DYLAN CAMARA
[2022-01-21] MEDS: FERROUS SULFATE 325 MG TABEC PO SCH (18:38)
--- NOTE | 2022-01-21 19:20 | NUR ---
RECEIVED REPORT FROM AM NURSE . POC DISCUSSED FOR CONTINUITY OF CARE.
[2022-01-21 19:29] VITALS: BP 99/55
--- NOTE | 2022-01-21 19:36 | NUR ---
ENDORSE PT TO PM SHIFT NURSE; PT STABLE W/ PIV AT R. FOOT. IV INFUSING
[2022-01-21] MEDS: PANTOPRAZOLE 40 MG INJ VIAL IVP SCH (20:25)
[2022-01-21] MEDS ORDERED: PANTOPRAZOLE 40 MG INJ VIAL IVP SCH (21:00)
[2022-01-21] MEDS ORDERED: MIRTAZAPINE 15 MG TAB PO SCH (21:00)
[2022-01-21] MEDS ORDERED: QUEtiapine FUMARATE 25 MG TAB PO SCH (21:00)
--- NOTE | 2022-01-21 21:00 | NUR ---
[facility] MEDS GIVEN IVP AND PO. PT SWALLOWED AFTER SEVERAL PROMPTS. PT SELF TURNS.IV 20 G IN R FOOT PATENT NS@60CC/HR INFUSING PER PUMP. LOVE DRAINING CLOUDY RED COLORED URINE IN MINUTE AMTS. THE TWO NEPHROSTOMY TUBES ARE DRAINING CLEAR LIGHT MARIA FERNANDA URINE. VSS: BP-113/63, P- 108, RR-20, T-98.2, O2SAT 100%. ALL SAFETY MEASURES IN PLACE. WILL CONTINUE TO MONITOR.
[2022-01-22] VITALS: BP 103/54
[2022-01-22] MEDS: NACL 0.9% 1,000 ML IV SCH (02:30)
[2022-01-22 04:00] VITALS: BP 118/59
--- NOTE | 2022-01-22 04:00 | NUR ---
PT RESTING; BREATHES USING ACCESSARY MUSCLES. IVF NS @60CC/HR CONTINUES LOVE DRAINED 50CC CLOUDY RED URINE. NEPHROSTOMY TUBES: L-50CC AND R-100CC. ALL SAFETY MEASURES IN PLACE. CONTINUE TO MONITOR.
[2022-01-22 05:44] LABS: HEMATOCRIT 22.3 % (36-52); HEMOGLOBIN 7.1 g/dL (12.0-18.0); MEAN CORPUSCULAR HEMOGLOBIN 31 pg (27-31); MEAN CORPUSCULAR HGB CONC 32 g/dL (33-37); MEAN CORPUSCULAR VOLUME 97.8 fL (80-94); PLATELET COUNT (AUTO) 119 K/uL (140-450); RED BLOOD CELL COUNT(AUTO) 2.28 MIL/uL (4.20-6.10); RED CELL DISTRIBUTION WIDTH 21.2 % (11.6-13.7)
[2022-01-22 06:15] LABS: ANION GAP 20.8 (8-16); CARBON DIOXIDE 11.8 mmol/L (21-32); CHLORIDE 114 mmol/L (98-107); GLUCOSE 51 mg/dL (74-106); POTASSIUM 3.6 mmol/L (3.5-5.1); SODIUM SERUM 143 mmol/L (136-145); UREA NITROGEN, BLOOD 46 mg/dL (7-18)
--- NOTE | 2022-01-22 07:40 | NUR ---
ENDORSED REPORT TO AM NURSE SHIRA. PT ALERT TO NAME. USE OF ACCESSORY MUSCLES USED WHEN BREATHING. COMFORT MEASURES PROVIDED. LOVE VIA GRAVITY . ALSO 2 NEPHROSTOMY TUBES VIA GRAVITY. 20 G IV IN R FOOT INFUSING NS @60CC/HR. ALL NEEDS MET THIS SHIFT. ALL SAFETY MEASURES IN PLACE.
--- NOTE | 2022-01-22 07:55 | NUR ---
RECEIVED REPORT FROM [employer]. ALERT TO NAME. USE OF ACCESSORY MUSCLES NOTED. COMFORT MEASURES PROVIDED. LOVE VIA GRAVITY. 2 NEPHROSTOMY TUBE VIA GRAVITY. NS @ 60 ML/HR ON R FOOT #20. NEEDS ALL MET AT THIS TIME. SAFETY PRECAUTIONS IN PLACE. WILL CONTINUE TO MONITOR CLOSELY.
[2022-01-22 08:00] VITALS: BP 95/51
[2022-01-22] MEDS: FERROUS SULFATE 325 MG TABEC PO SCH (08:00)
[2022-01-22 08:57] LABS: WHITE BLOOD COUNT (AUTO) 32.8 K/uL (4.8-10.8)
[2022-01-22 08:58] LABS: BASOPHILS % (MANUAL) 0 % (0-2); EOSINOPHILS % (MANUAL) 0 % (0-4); LYMPHOCYTES % (MANUAL) 4 % (20-46); MONOCYTES % (MANUAL) 5 % (5-12)
[2022-01-22 08:59] LABS: BLASTS, MANUAL % 0 % (0-0); METAMYELOCYTES % 0 % (0-0); MYELOCYTES % 0 % (0-0); OTHER CELLS,MANUAL % 0 (0-0); PROMYELOCYTES % 0 % (0-0)
[2022-01-22] MEDS ORDERED: ASCORBIC ACID 500 MG TAB PO SCH (09:00)
[2022-01-22] MEDS ORDERED: LACTULOSE 20 GM/30 ML UDC PO SCH (09:00)
--- NOTE | 2022-01-22 09:12 | NUR ---
REPORTED CRITICAL WBC TO MD. MD WILL ORDER ANTIBIOTICS.
[2022-01-22] MEDS: PANTOPRAZOLE 40 MG INJ VIAL IVP SCH (09:17)
[2022-01-22] MEDS ORDERED: DEXT 5% /NACL 0.9% 1,000 ML IV SCH (09:30)
--- NOTE | 2022-01-22 09:30 | NUR ---
PT MOANING. PRN MORPHINE GIVEN. RR 24. USE OF ACCESSORY MUSCLES NOTED. UNABLE TO TAKE ORAL MEDICATIONS. NEEDS ALL MET AT THIS TIME. SAFETY PRECAUTIONS IN PLACE.
--- NOTE | 2022-01-22 10:30 | NUR ---
PT RESTING WITH EYES CLOSED. RR EVEN & UNLABORED. RR 18. CHEST RISING AND FALLING. NO OUTPUT NOTED FOR LOVE OR BILATERAL NEPHROSTOMY BAG. SAFETY PRECAUTIONS IN PLACE. HOURLY ROUNDS BEING CONDUCTED.
[2022-01-22] MEDS ORDERED: SODIUM BICARBONATE 8.4% 100 MEQ in DEXTROSE 5% 1,000 ML IV SCH (11:00)
[2022-01-22 12:00] VITALS: BP 120/57
--- NOTE | 2022-01-22 12:17 | NUR ---
DC PLANNING: RECEIVED A CALL FROM [facility] [phone] SPOKE WITH ARIANE STATED PT'S DECISION MAKER PASTOR KIERSTEN BEACH SIGNED THE HOSPICE. CALLED BIN SPOKE WITH LEANDRO STATED PASTOR BURCH IS THE DECISION MAKER FOR THE PATIENT AND CAN SIGN ALL THE PAPER WORK ON BEHALF OF THE PATIENT. CALLED PASTOR BURCH [phone] STATED PATIENT HAS NO FAMILY MEMBER IN [place] AND SHE IS THE DECISION MAKER. CLARIFIED WITH THE PATIENT AND PT AGREED. PATIENT WILL BE GOING TO [facility] LIVING THE ADDRESS [id number] [facility] [facility]. [id number] . ARIANE WILL ARRANGE TRANSPORT AND FLORAL SPECIALIST TIME WILL BE BETWEEN 3-[address] GARDNER AND MELLY RICHARDSON. CM TO FOLLOW
[2022-01-22 13:03] VITALS: BP 120/57
--- NOTE | 2022-01-22 14:00 | NUR ---
SPOKE WITH ARIANE FROM [facility] REGARDING PICKUP TIME. STATES WILL CONTACT ME ONCE AMBULANCE IS SCHEDULED. PT RESTING IN BED. NO MOANING NOTED. IVF INFUSING. COMFORT MEASURES PROVIDED. NEEDS ALL MET AT THIS TIME. SAFETY MEASURES IN PLACE. WILL MONITOR CLOSELY.
--- NOTE | 2022-01-22 15:26 | NUR ---
PT DISCHARGED. DISCHARGE PAPERS WITH AMBULANCE TEAM. REPORT GIVEN. IV OF R FOOT DISCONTINUED. HEART MONITOR DISCONTINUED. PT WHEELED OUT VIA GURNEY.
== END 2022-01-22 15:30 | DRG 698 ==
LOC: MED 09:52 → MTU 12:30
PROVIDERS: ADMIT Family Medicine; ATTEND Family Medicine
DX: T83.511A Infection and inflammatory reaction due to indwelling urethral catheter, initial encounter (principal); A41.9 Sepsis, unspecified organism; N17.0 Acute kidney failure with tubular necrosis; R65.20 Severe sepsis without septic shock; K92.0 Hematemesis; N39.0 Urinary tract infection, site not specified; Z20.822 Contact with and (suspected) exposure to COVID-19; Z66 Do not resuscitate; K21.9 Gastro-esophageal reflux disease without esophagitis; G30.9 Alzheimer's disease, unspecified; F02.80 Dementia in other diseases classified elsewhere, unspecified severity, without behavioral disturbance, psychotic disturbance, mood disturbance, and anxiety; I12.9 Hypertensive chronic kidney disease with stage 1 through stage 4 chronic kidney disease, or unspecified chronic kidney disease; E11.22 Type 2 diabetes mellitus with diabetic chronic kidney disease; N18.30 Chronic kidney disease, stage 3 unspecified; D63.8 Anemia in other chronic diseases classified elsewhere; Y83.8 Other surgical procedures as the cause of abnormal reaction of the patient, or of later complication, without mention of misadventure at the time of the procedure; Z79.899 Other long term (current) drug therapy; Y92.89 Other specified places as the place of occurrence of the external cause; Z85.51 Personal history of malignant neoplasm of bladder
CPT/HCPCS: 36415; 71045; 80048; 80053; 81001; 83605; 83690; 83880; 84484; 85025; 85610; 85730; 86886; 86900; 86901; 87040; 87086; 92610; 93005; 96361; 96365; 96375; 99291; C9113; J0696; J0713; J2270; J2405; J3010; J3490; J7030; J7060; Q0092